=== PATIENT | male | born 1940 | race Caucasian/White ===

== ENCOUNTER 2017-05-24 06:58 | Emergency (ER) | payer OTHER ==
[2017-05-24 07:05] VITALS: BP 168/72; BMI 22.6
[2017-05-24] MEDS ORDERED: TORADOL 30 MG VIAL IVP ONE (07:20)
[2017-05-24] MEDS ORDERED: TYLENOL 325 MG TAB PO ONE ×2 (07:20→07:25)
[2017-05-24] MEDS ORDERED: NS 1000 ML 1,000 ML IV ONE (07:20)
[2017-05-24] MEDS ORDERED: TORADOL 30 MG VIAL ONE (07:24)
[2017-05-24] MEDS ORDERED: NS 1000 ML 1,000 ML ONE (07:24)
[2017-05-24 07:40] LABS: BASOPHILS # (AUTO) 0.1 X10^3/uL (0.0-0.1); BASOPHILS % (AUTO) 0.6 % (0.2-1.0); HEMATOCRIT 29.1 % (42.0-54.0); LYMPHOCYTES % (AUTO) 13.8 % (21.0-51.0); MEAN CORPUSCULAR HEMOGLOBIN 19.2 pg (27.0-34.0); MEAN PLATELET VOLUME 7.3 fL (7.4-11.0); MONOCYTES # (AUTO) 2.3 x10^3/uL (0.3-0.8); MONOCYTES % (AUTO) 15.4 % (0.0-13.0); NEUTROPHILS # (AUTO) 10.4 x10^3/uL (2.2-4.8); NEUTROPHILS % (AUTO) 70.2 % (42.0-75.0); PLATELET COUNT 287 X10^3/uL (150.0-450.0); RED CELL DISTRIBUTION WIDTH 19.9 % (11.6-16.5); WHITE BLOOD COUNT 14.8 X10^3/uL (3.6-10.0)
[2017-05-24 07:47] LABS: ANISOCYTOSIS 1+; HYPOCHROMASIA 2+; MICROCYTOSIS 2+; PLATELET MORPHOLOGY COMMENT NORMAL (NORMAL)
[2017-05-24 07:51] LABS: ALANINE AMINOTRANSFERASE 21 Units/L (12-78); ALBUMIN 3.4 g/dL (3.4-5.0); ALKALINE PHOSPHATASE 71 Units/L (46-116); ASPARTATE AMINO TRANSFERASE 15 Units/L (15-37); BLOOD UREA NITROGEN 17 mg/dL (7-18); CALCIUM 9.2 mg/dL (8.5-10.1); CARBON DIOXIDE 23.4 mmol/L (21-32); CHLORIDE 97 mmol/L (98-107); CREATININE 1.12 mg/dL (0.70-1.30); SODIUM 133 mmol/L (136-145); TOTAL PROTEIN 8.2 g/dL (6.4-8.2); eGFR BLACK RACES > 60 (>60); eGFR NON BLACK RACES > 60 (>60)
--- NOTE | 2017-05-24 07:58 | CT ---
HISTORY: Right flank pain, hematuria Study: CT abdomen pelvis without contrast Comparison: None Technique: Axial noncontrast images with coronal and sagittal reformats. Dose reduction procedures we re used with mA/kv adjusted for body size. Findings: Mild bibasilar interstitial lung changes are present. The liver, spleen, adrenal glands, and pancreas are within normal limits to the limitations of an unenhanced examination. No opaque stones are visib le within the gallbladder. The kidneys are unobstructed and without stones. No ureteral calculi are i dentified. The appendix is noninflamed. Calcific atherosclerotic change is present in a nondilated ab dominal aorta. No enlarged intraperitoneal or retroperitoneal lymphadenopathy is identified. Are no f indings suggestive of diverticulitis or colitis. Examination of the pelvis demonstrated no evidence f or pelvic masses, pelvic fluid, or pelvic lymphadenopathy. No bladder calculi are identified. There i s some mild thickening of the wall of the bladder. This could be due to cystitis, less likely neoplas m. Clinical correlation should determine need for cystoscopy. The prostate gland is prominent but not grossly enlarged. No lytic or blastic skeletal lesions are identified. IMPRESSION: No evidence for obstructing renal or ureteral calculi Mild thickening of the bladder wall which could be on the basis of cystitis, less likely neoplasm. Cl inical correlation should determine need for further evaluation with cystoscopy. Reported By:
--- NOTE | 2017-05-24 08:06 | DR.MBACK ---
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 Patient complains of right flant pain, decreased urinary output, a very little at a time. He denies fever. Chief Complaint:: PT C/O RIGHT FLANK PAIN , AND BLOOD IN HIS UA, AND ONLY ABLE TOO PEE A TEASPOON AT THIS TIME,,BR Self Treatment fo Chief Complaint: pt states he was tx for the flu last week and he was given tamiflu.. - Source History Provided: Patient - Mode of Arrival Mode of Arrival: Ambulatory - Timing Onset of Chief Complaint: 05/23/17 - Location Back Pain Location: Right, Flank - Associated Signs and Symptoms Back Pain Symptoms: None Numbness: None Weakness: None PMH - PMH Past Medical History: Yes Past Medical History: Dyslipidemia, Hypertension Past Surgical History: Yes Past Surgical History Comment: BACK SURGERY IN 1973. - Family History History of Family Medical Conditions: No - Social History Does patient currently use any type of tobacco product: No Have you used tobacco products in the last 12 months: No Type of Tobacco Use: None Does any household member use tobacco: No Alcohol Use: None Do you use any recreational Drugs:: No Lives With: Alone Lives Where: Home - infectious screening In the last 2 months have you had wt loss of >10#?: NO Have you had fever, night sweats or hemotysis?: No Have you traveled outside the country in the last 6 months?: No Isolation: Standard ROS - Review of Systems Eyes: No Symptoms Reported ENTM: No Symptoms Reported Respiratoy: No Symptoms Reported Cardiovascular: No Symptoms Reported Gastrointestinal/Abdominal: No Symptoms Reported Genitourinary: See HPI Musculoskeletal: No Symptoms Reported Integumentary: No Symptoms Reported Hematologic/Lymphatic: No Symptoms Reported Endocrine: No Symptoms Reported Psychiatric: See HPI All Other Systems: Reviewed and Negative PE - Vital Signs Vitals: Temperature 101.2 F Pulse Rate 101 Respiratory Rate 18 Blood Pressure 168/72 O2 Sat by Pulse Oximetry 99 - General Limitations: Other (Hearing deficit) General Appearance: Alert, In No Apparent Distress - Head Head Exam: Normal Inspection, Atraumatic - Eyes Eye exam: Normal Appearance, PERRL, EOMI - ENT ENT Exam: Normal Exam - Chest Chest Inspection: Normal Inspection, Symmetric Chest Wall Rise - Respiratory Respiratory Exam: Normal Lung Sounds Bilat Respiratory Exam: Bilateral Clear to Auscultation - Cardiovascular Cardiovascular Exam: Regular Rate, Normal Rhythm - Abdominal Exam Abdominal Exam: Normal Inspection, Normal Bowel Sounds Abdominal Tenderness: negative: RUQ, RLQ, LUQ, LLQ, Epigastrium, Suprapubic, Diffuse, Mild, Moderate, Severe, Other - Rectal Rectal Exam: Deferred - Genitourinary Exam: Male: Deferred Scrotal Exam: Normal: Bilateral - Extremities Extremities Exam: Normal Inspection - Back Back Exam: (R) CVA Tenderness - Neurological Neurological Exam: Alert, Oriented X3, CN II-XII Intact - Psychiatric Psychiatric Exam: Normal Affect - Skin Skin Exam: Warm, Dry, Intact ROR - Labs Reviewed Result Diagrams: 05/24/17 07:30 05/24/17 07:30 Laboratory: WBC 14.8 X10^3/uL (3.6-10.0) H 05/24/17 07:30 RBC 4.70 X10^6/uL (4.7-6.0) 05/24/17 07:30 Hgb 9.0 g/dL (13.5-18.0) L 05/24/17 07:30 Hct 29.1 % (42.0-54.0) L 05/24/17 07:30 MCV 62.0 fL (80.0-100.0) L 05/24/17 07:30 MCH 19.2 pg (27.0-34.0) L 05/24/17 07:30 MCHC 31.0 g/dL (33.0-35.0) L 05/24/17 07:30 RDW 19.9 % (11.6-16.5) H 05/24/17 07:30 Plt Count 287 X10^3/uL (150.0-450.0) 05/24/17 07:30 Plt Count Comment Adequate (ADEQUATE) 05/24/17 07:30 MPV 7.3 fL (7.4-11.0) L 05/24/17 07:30 Neut % 70.2 % (42.0-75.0) 05/24/17 07:30 Lymph % 13.8 % (21.0-51.0) L 05/24/17 07:30 [place] % 15.4 % (0.0-13.0) H 05/24/17 07:30 Eos % 0.0 % (0.9-2.9) L 05/24/17 07:30 Baso % 0.6 % (0.2-1.0) 05/24/17 07:30 Neut # 10.4 x10^3/uL (2.2-4.8) H 05/24/17 07:30 Lymph # 2.0 X10^3/uL (1.3-2.9) 05/24/17 07:30 [place] # 2.3 x10^3/uL (0.3-0.8) H 05/24/17 07:30 Eos # 0.0 x10^3/uL (0.0-0.2) 05/24/17 07:30 Baso # 0.1 X10^3/uL (0.0-0.1) 05/24/17 07:30 Absolute Nucleated RBC 0.0 /100WBC 05/24/17 07:30 Plt Morphology Comment Normal (NORMAL) 05/24/17 07:30 RBC Morphology Abnormal (NORMAL) 05/24/17 07:30 Hypochromasia 2+ A 05/24/17 07:30 Anisocytosis 1+ A 05/24/17 07:30 Microcytosis 2+ A 05/24/17 07:30 Sodium 133 mmol/L (136-145) L 05/24/17 07:30 Corrected Sodium TNP 05/24/17 07:30 Potassium 3.6 mmol/L (3.5-5.1) 05/24/17 07:30 Chloride 97 mmol/L (98-107) L 05/24/17 07:30 Carbon Dioxide 23.4 mmol/L (21-32) 05/24/17 07:30 BUN 17 mg/dL (7-18) 05/24/17 07:30 Creatinine 1.12 mg/dL (0.70-1.30) 05/24/17 07:30 Est GFR (MDRD) Af Amer > 60 (>60) 05/24/17 07:30 Est GFR (MDRD) Non-Af > 60 (>60) 05/24/17 07:30 Glucose 108 mg/dL (65-99) H 05/24/17 07:30 Calcium 9.2 mg/dL (8.5-10.1) 05/24/17 07:30 Corrected Calcium TNP 05/24/17 07:30 Total Bilirubin 0.60 mg/dL (0.2-1.0) 05/24/17 07:30 AST 15 Units/L (15-37) 05/24/17 07:30 ALT 21 Units/L (12-78) 05/24/17 07:30 Alkaline Phosphatase 71 Units/L (46-116) 05/24/17 07:30 Total Protein 8.2 g/dL (6.4-8.2) 05/24/17 07:30 Albumin 3.4 g/dL (3.4-5.0) 05/24/17 07:30 Globulin 4.8 g/dL (2.5-4.5) H 05/24/17 07:30 Albumin/Globulin Ratio 0.7 Ratio (1.1-2.1) L 05/24/17 07:30 - XRAY XRAY Interpreted by: Radiologist (CT Abd/pel w/o: Mild bibasilar interstitial lung changes are present. The liver, spleen,adrenal glands and pancreas are within normal limits to the limitations of an unenhanced examination. On opaqua stones are visible within the gallbladder. The kidneys are unobstructed and without stones. No ureteral calculi are identified. The appendix is noninflamed. Calcific atherosclerotic change is present in the nondilated abdominal aorta. No enlarged intraperitoneal or retroperitoneal lymphadenopathy is identified. Are no findings suggestive of diverticulitis or colitis. Examination of the pelvis demonstrated no evidence for pelvic masses, pelvic fluid or pelvic lymphadenopathy. No bladder calculi are identified. There is some mild thickening of the wall of the bladder. This could be due to cystitis, clemente likely neoplasm. Clinical correlation should determine need for cystoscopy. The prostate gland is prominent but not grossly enlarged. No lytic or blastic skeletal lesions are identified. Impression: No evidence for obstructing renal or ureteral calculi. Mild thickenintg of the bladder wall which coould be on the basis of cystitis, less likely neoplasm. Clinical correlation should determine need for further evaluation with cystoscopy.) - Diagnosis Discharge Problem: Hyponatremia, Cystitis - Discharge Plan Condition: Stable - Follow ups/Referrals Follow ups/Referrals: LETI BULLARD [Primary Care Provider] - 3 days - Instructions
[2017-05-24 08:41] LABS: BILIRUBIN,URINE NEGATIVE (NEGATIVE); BLOOD/HEMOGLOBIN,URINE 5+ (NEGATIVE); GLUCOSE, URINE NEGATIVE (NEGATIVE); KETONES,URINE 1+ (NEGATIVE); LEUKOCYTE ESTERASE ,URINE 3+ (NEGATIVE); NITRITES,URINE POSITIVE (NEGATIVE); PROTEIN,URINE 3+ (NEGATIVE); UROBILINOGEN,URINE NORMAL (NORMAL)
[2017-05-24 08:50] LABS: APPEARANCE,URINE CLOUDY (CLEAR); COLOR,URINE AMBER (YELLOW); RBC,URINE TNTC /HPF (NEGATIVE); SQUAMOUS EPITHELIAL CELL,UR RARE /HPF (NEGATIVE)
[2017-05-24 08:51] LABS: BACTERIA,URINE 1+ /HPF (NEGATIVE)
== END 2017-05-24 08:52 | disposition home or self-care (01) ==
LOC: ER 07:13
DX: E87.1 Hypo-osmolality and hyponatremia (principal); N30.90 Cystitis, unspecified without hematuria; B96.29 Other Escherichia coli [E. coli] as the cause of diseases classified elsewhere
CPT/HCPCS: 36415; 74176; 80053; 81001; 85025; 87086; 87088; 87186; 96365; 96374; 99282; 99283; A4222; J1885

== ENCOUNTER 2017-07-27 09:46 | Day surgery (SDC) | payer OTHER ==
[~2017-07-27 09:46] MED LIST: PROLENSA OPHTH 1 DOSE AFFEYE ONE; TETRACAINE 0.5% OPHTH 1 DOSE AFFEYE ONE; VIGAMOX 0.5% OPHTH 1 DOSE AFFEYE ONE
[2017-07-27] MEDS ORDERED: ALPHAGAN-P OPHTH 1 DOSE AFFEYE ONE (09:48)
[2017-07-27] MEDS ORDERED: CYCLOGYL 1% OPHTH 1 DOSE OP ONE ×4 (09:50→10:05)
[2017-07-27] MEDS ORDERED: AK-DILATE 2.5% OPHTH 1 DOSE OP ONE ×4 (09:50→10:05)
[2017-07-27] MEDS ORDERED: MYDRIACIL OPHTH 1 DOSE AFFEYE ONE ×4 (09:50→10:05)
[2017-07-27] MEDS ORDERED: NS 500 ML IV 500 ML IV ONE (09:51)
[2017-07-27] MEDS ORDERED: DIPRIVAN VIAL ONE (10:52)
[2017-07-27] MEDS ORDERED: TETRACAINE 0.5% OPHTH 1 DOSE AFFEYE ONE (12:48)
[2017-07-27] MEDS ORDERED: BETADINE OPHTH SOLN 5% EACHEYE ONE (12:48)
[2017-07-27] MEDS ORDERED: ADRENALINE CHL INJ IJ ONE ×2 (12:53→13:00)
[2017-07-27] MEDS ORDERED: XYLOCAINE-MPF 1% IJ ONE ×2 (12:53→13:00)
[2017-07-27] MEDS ORDERED: VIGAMOX 0.5% OPHTH 1 DOSE AFFEYE ONE ×2 (12:53→13:09)
[2017-07-27] MEDS ORDERED: BSS OPHTH (PLAIN) 500 ML with VANCOMYCIN HCL 500 MG VIAL 25 MG, ADRENALINE CHL INJ 1 MG IR ONE ×6 (12:54)
[2017-07-27] MEDS ORDERED: DUOVISC IO ONE ×2 (12:54→13:00)
[2017-07-27 13:26] VITALS: BP 164/65
== END 2017-07-27 13:30 | disposition home or self-care (01) ==
LOC: SURG1 09:46
PROVIDERS: ATTEND Ophthalmology
PROC: 08DK3ZZ Extraction of Left Lens, Percutaneous Approach (ICD-10-PCS; principal; 2017-07-27 21:00)
PROC: 08RK3JZ Replacement of Left Lens with Synthetic Substitute, Percutaneous Approach (ICD-10-PCS; principal; 2017-07-27 21:00)
DX: H25.12 Age-related nuclear cataract, left eye (principal); H25.042 Posterior subcapsular polar age-related cataract, left eye
CPT/HCPCS: 99100; A4217; J0170; J3370; J3490

== ENCOUNTER 2017-08-10 07:26 | Day surgery (SDC) | payer OTHER ==
[2017-08-10] MEDS ORDERED: TETRACAINE 0.5% OPHTH 1 DOSE AFFEYE ONE ×2 (07:55→10:00)
[2017-08-10] MEDS ORDERED: VIGAMOX 0.5% OPHTH 1 DOSE AFFEYE ONE ×5 (07:56→10:34)
[2017-08-10] MEDS ORDERED: PROLENSA OPHTH 1 DOSE AFFEYE ONE (08:07)
[2017-08-10] MEDS ORDERED: ALPHAGAN-P OPHTH 1 DOSE AFFEYE ONE (08:08)
[2017-08-10] MEDS ORDERED: CYCLOGYL 1% OPHTH 1 DOSE OP ONE ×3 (08:09→08:11)
[2017-08-10] MEDS ORDERED: MYDRIACIL OPHTH 1 DOSE AFFEYE ONE ×3 (08:09→08:11)
[2017-08-10] MEDS ORDERED: AK-DILATE 2.5% OPHTH 1 DOSE OP ONE ×3 (08:09→08:11)
[2017-08-10] MEDS ORDERED: NS 500 ML IV 500 ML IV ONE (08:24)
[2017-08-10] MEDS ORDERED: BETADINE OPHTH SOLN 5% EACHEYE ONE (10:00)
[2017-08-10] MEDS ORDERED: XYLOCAINE-MPF 1% IJ ONE ×2 (10:06→10:22)
[2017-08-10] MEDS ORDERED: DUOVISC IO ONE ×2 (10:06→10:22)
[2017-08-10] MEDS ORDERED: ADRENALINE CHL INJ IJ ONE ×2 (10:06→10:22)
[2017-08-10] MEDS ORDERED: BSS OPHTH (PLAIN) 500 ML with VANCOMYCIN HCL 500 MG VIAL 25 MG, ADRENALINE CHL INJ 1 MG IR ONE ×6 (10:07)
[2017-08-10 11:00] VITALS: BP 176/78
[2017-08-10] MEDS ORDERED: DIPRIVAN VIAL ONE (15:49)
== END 2017-08-10 10:55 | disposition home or self-care (01) ==
LOC: SURG1 07:26
PROVIDERS: ATTEND Ophthalmology
PROC: 08DJ3ZZ Extraction of Right Lens, Percutaneous Approach (ICD-10-PCS; principal; 2017-08-10 11:15)
PROC: 08RJ3JZ Replacement of Right Lens with Synthetic Substitute, Percutaneous Approach (ICD-10-PCS; principal; 2017-08-10 11:15)
DX: H25.11 Age-related nuclear cataract, right eye (principal); H25.041 Posterior subcapsular polar age-related cataract, right eye
CPT/HCPCS: 99100; A4217; J0170; J3370; J3490

== ENCOUNTER 2019-10-02 09:25 | Observation (INO) ==
[2019-10-02 09:35] VITALS: BMI 23.6
[2019-10-02] MEDS ORDERED: TYLENOL 500 MG TAB EXTRA STRENGTH PO ONE ×2 (09:48→09:51)
--- NOTE | 2019-10-02 09:51 | DR.EXTPAIN ---
HPI Time seen Time Seen by Provider: 10/02/19 09:40 PCP Primary Care Physician: LETI BULLARD HPI Comment HPI Comment: Tripped and hit his right chest on the corner of the bed, denies LOC or dizziness or weakness either before or after the fall. Denies any head or neck trauma or pain. No SHOB, no n/v/d. Complaint/Symptoms Chief Complaint:: PATIENT STATES " I FELL LAST NIGHT AND HIT THE CORNER OF MY BED ON MY RIGHT SIDE AND MY SHOULDER AND DOWN HURTS AND HAS BOTHERED ME ALL NIGHT." COVID-19 Coronavirus risk:travel/contact w/high risk person: No Has patient experienced Coronavirus symptoms: No Nurses notes reviewed Nurses Notes Review: Yes Source History Provided: Patient Mode of arrival Mode of Arrival: Ambulatory Timing Onset of Chief Complaint: 10/01/19 Context History of: None Associated signs and symptoms Associated Signs and Symptoms: None PMH PMH Past Medical History: Yes Past Medical History: Dyslipidemia and Hypertension Past Surgical History: Yes Surgical History: Other Family History History of Family Medical Conditions: No Social History Alcohol Use: None Do you use any recreational Drugs:: No Travel Risk Coronavirus risk:travel/contact w/high risk person: No Has patient experienced Coronavirus symptoms: No Infectious screening Have you traveled outside the country in the last 6 months?: No Isolation: Standard ROS Review of Systems Constitutional: No Symptoms Reported Eyes: No Symptoms Reported ENTM: No Symptoms Reported Respiratoy: No Symptoms Reported Cardiovascular: No Symptoms Reported Gastrointestinal/Abdominal: No Symptoms Reported Genitourinary: No Symptoms Reported Neurological: No Symptoms Reported Musculoskeletal: See HPI Integumentary: No Symptoms Reported Hematologic/Lymphatic: No Symptoms Reported Endocrine: No Symptoms Reported Psychiatric: No Symptoms Reported All Other Systems: Reviewed and Negative PE Vital Signs Vitals: Temperature 97.6 F Pulse Rate [Left] 56 Pulse Rate 61 Respiratory Rate 16 Blood Pressure [Right Arm] 228/97 Blood Pressure 205/91 O2 Sat by Pulse Oximetry 96 General Limitations: No Limitations General Appearance: Alert and In No Apparent Distress Head Head Exam: Normal Inspection and Atraumatic Eyes Eye exam: Normal Appearance ENT ENT Exam: Normal Exam Neck Neck Exam: Normal Inspection, Full ROM and Trachea Midline; negative Tenderness Chest Chest Inspection: Symmetric Chest Wall Rise and Tenderness (right side); negative Normal Inspection (Right flank hematoma) Respiratory Respiratory Exam: Normal Lung Sounds Bilat and Chest Wall Tenderness; negative Accessory Muscle Use, Prolonged Expiratory Phase, Respiratory Distress and Stridor Cardiovascular Cardiovascular Exam: Regular Rate and Normal Rhythm Abdominal Exam Abdominal Exam: Normal Inspection, Normal Bowel Sounds, Soft and Tenderness Abdominal Tenderness: RUQ Extremities Extremities Exam: Normal Inspection Back Back Exam: Normal Inspection Neurological Neurological Exam: Alert, Oriented X3 and CN II-XII Intact Psychiatric Psychiatric Exam: Normal Affect and Normal Mood Skin Skin Exam: Warm, Dry, Intact and Normal Color COURSE Treatment Treatment: Fx ribs 6 7 7 on the right, right small PTX/PHX with PCX. No SHOB or respiratory discomfort in obs. Per rads, no free fluid or any acute abnormalities in the abdomen and pelvis. Discussed the case with Dr. Leon who recommended that the patient be admitted for obs. Pain improved after analgesia. Reevaluation 1st: Improved ROR Labs Reviewed Laboratory Results Reviewed?: Yes Result Diagrams: 10/02/19 10:00 10/02/19 10:00 Laboratory: WBC 6.7 X10^3/uL (3.6-10.0) 10/02/19 10:00 RBC 4.60 X10^6/uL (4.7-6.0) L 10/02/19 10:00 Hgb 13.4 g/dL (13.5-18.0) L 10/02/19 10:00 Hct 40.3 % (42.0-54.0) L 10/02/19 10:00 MCV 87.8 fL (80.0-100.0) 10/02/19 10:00 MCH 29.3 pg (27.0-34.0) 10/02/19 10:00 MCHC 33.3 g/dL (33.0-35.0) 10/02/19 10:00 RDW 13.8 % (11.6-16.5) 10/02/19 10:00 Plt Count 166 X10^3/uL (150.0-450.0) 10/02/19 10:00 MPV 7.0 fL (7.4-11.0) L 10/02/19 10:00 Neut % (Auto) 68.1 % (42.0-75.0) 10/02/19 10:00 Lymph % (Auto) 21.3 % (21.0-51.0) 10/02/19 10:00 [place] % (Auto) 7.4 % (0.0-13.0) 10/02/19 10:00 Eos % (Auto) 2.1 % (0.9-2.9) 10/02/19 10:00 Baso % (Auto) 1.1 % (0.2-1.0) H 10/02/19 10:00 Neut # (Auto) 4.5 x10^3/uL (2.2-4.8) 10/02/19 10:00 Lymph # (Auto) 1.4 X10^3/uL (1.3-2.9) 10/02/19 10:00 [place] # (Auto) 0.5 x10^3/uL (0.3-0.8) 10/02/19 10:00 Eos # (Auto) 0.1 x10^3/uL (0.0-0.2) 10/02/19 10:00 Baso # (Auto) 0.1 X10^3/uL (0.0-0.1) 10/02/19 10:00 Absolute Nucleated RBC 0.0 /100WBC 10/02/19 10:00 Sodium 136 mmol/L (136-145) 10/02/19 10:00 Corrected Sodium TNP 10/02/19 10:00 Potassium 3.7 mmol/L (3.5-5.1) 10/02/19 10:00 Chloride 99 mmol/L (98-107) 10/02/19 10:00 Carbon Dioxide 29.7 mmol/L (21-32) 10/02/19 10:00 BUN 16 mg/dL (7-18) 10/02/19 10:00 Creatinine 1.07 mg/dL (0.70-1.30) 10/02/19 10:00 Est GFR (MDRD) Af Amer > 60 (>60) 10/02/19 10:00 Est GFR (MDRD) Non-Af > 60 (>60) 10/02/19 10:00 Glucose 100 mg/dL (65-99) H 10/02/19 10:00 Calcium 8.9 mg/dL (8.5-10.1) 10/02/19 10:00 Specimen Type Clean catch urine 10/02/19 11:52 Urine Color Yellow (YELLOW) 10/02/19 11:52 Urine Appearance Clear (CLEAR) 10/02/19 11:52 Urine pH 6.0 (5.0 - 8.0) 10/02/19 11:52 Ur Specific [place] 1.010 (1.000-1.030) 10/02/19 11:52 Urine Protein Negative (NEGATIVE) 10/02/19 11:52 Urine Glucose (UA) Negative (NEGATIVE) 10/02/19 11:52 Urine Ketones Negative (NEGATIVE) 10/02/19 11:52 Urine Occult Blood Negative (NEGATIVE) 10/02/19 11:52 Urine Nitrite Negative (NEGATIVE) 10/02/19 11:52 Urine Bilirubin Negative (NEGATIVE) 10/02/19 11:52 Urine Urobilinogen Normal (NORMAL) 10/02/19 11:52 Ur Leukocyte Esterase Negative (NEGATIVE) 10/02/19 11:52 EKG [place]: Normal Rhythm: NSR Block: None Hypertrophy: None ST: Normal Opioid Opioid Risk Tool Age (Jesús box if 16-45): No Total: 0 Total Score Risk Category: Low Risk Copyright: [facility] predicting aberrant behaviors Diagnosis Discharge Problem: Hemothorax on right, Pneumothorax on right Multiple rib fractures Qualifiers: Encounter type: initial encounter Fracture type: closed Laterality: right Qualified Code(s): S22.41XA - Multiple fractures of ribs, right side, initial encounter for closed fracture Contusion of lung Qualifiers: Encounter type: initial encounter Laterality: right Qualified Code(s): S27.321A - Contusion of lung, unilateral, initial encounter
[2019-10-02 10:11] LABS: BASOPHILS # (AUTO) 0.1 X10^3/uL (0.0-0.1); BASOPHILS % (AUTO) 1.1 % (0.2-1.0); EOSINOPHILS # (AUTO) 0.1 x10^3/uL (0.0-0.2); EOSINOPHILS % (AUTO) 2.1 % (0.9-2.9); HEMATOCRIT 40.3 % (42.0-54.0); HEMOGLOBIN 13.4 g/dL (13.5-18.0); LYMPHOCYTES # (AUTO) 1.4 X10^3/uL (1.3-2.9); LYMPHOCYTES % (AUTO) 21.3 % (21.0-51.0); MEAN CORPUSCULAR HEMOGLOBIN 29.3 pg (27.0-34.0); MEAN CORPUSCULAR HGB CONC 33.3 g/dL (33.0-35.0); MEAN CORPUSCULAR VOLUME 87.8 fL (80.0-100.0); MONOCYTES # (AUTO) 0.5 x10^3/uL (0.3-0.8); MONOCYTES % (AUTO) 7.4 % (0.0-13.0); NEUTROPHILS # (AUTO) 4.5 x10^3/uL (2.2-4.8); NEUTROPHILS % (AUTO) 68.1 % (42.0-75.0); PLATELET COUNT 166 X10^3/uL (150.0-450.0); RED CELL DISTRIBUTION WIDTH 13.8 % (11.6-16.5); WHITE BLOOD COUNT 6.7 X10^3/uL (3.6-10.0)
[2019-10-02 10:14] LABS: BLOOD UREA NITROGEN 16 mg/dL (7-18); CALCIUM 8.9 mg/dL (8.5-10.1); CARBON DIOXIDE 29.7 mmol/L (21-32); CHLORIDE 99 mmol/L (98-107); CREATININE 1.07 mg/dL (0.70-1.30); SODIUM 136 mmol/L (136-145); eGFR NON BLACK RACES > 60 (>60)
[2019-10-02] MEDS ORDERED: NS 100 ML IV 100 ML IV ONE (10:42)
[2019-10-02 11:59] LABS: BILIRUBIN,URINE NEGATIVE (NEGATIVE); BLOOD/HEMOGLOBIN,URINE NEGATIVE (NEGATIVE); GLUCOSE, URINE NEGATIVE (NEGATIVE); KETONES,URINE NEGATIVE (NEGATIVE); LEUKOCYTE ESTERASE ,URINE NEGATIVE (NEGATIVE); NITRITES,URINE NEGATIVE (NEGATIVE); PROTEIN,URINE NEGATIVE (NEGATIVE); UROBILINOGEN,URINE NORMAL (NORMAL)
[2019-10-02 12:06] LABS: APPEARANCE,URINE CLEAR (CLEAR); COLOR,URINE YELLOW (YELLOW)
--- NOTE | 2019-10-02 12:10 | CT ---
HISTORYRIGHT RIB PAIN DUE TO FALL ON 10/01/19TUDYABDOMEN/PELVIS WITH CONCOMPARISONNoneTECHNIQUEAxial images through the abdomen were performed after the administration of contrast. CT scan was performed following ALARA (As low as Reasonably Achievable).Coronal and Sagittal reformatted images were performed..FINDINGSThe lung bases demonstrate multiple right lateral rib fractures 6 7 and 8th, there is an small right pleural effusion with Hounsfield units of 18, there is also patchy atelectasis within right lower lobe contusion. There is mild subcutaneous emphysema in the right lateral lower chest and there is a small anterior pneumothorax. There is ground-glass radiopacities in the left lung that could correspond with areas of contusion. The liver demonstrate no focal hematomas. The spleen is nonenlarged no pericholecystic fluid, the pancreas is unremarkable, there is no gallstones, no intra or extrahepatic biliary dilatation common no adrenal masses, there are bilateral normal enhancing kidneys without hydronephrosis, no abnormal dilated small bowel loops, there is evidence of free air could no significant free fluid, no focal dilatation of the abdominal aortaPelvis: There is no free fluid. The prostate is not enlarged. The urinary bladder demonstrate no abnormalitie. there is no dominant pelvic hematoma. No pelvic bone fractures. No acute compression fractures of the lumbar vertebral bodiesIMPRESSIONMultiple right lateral rib fracture 6, 7 and 8 th with small anterior pneumothorax please correlation with a CT chest recommended.Right lower lobe contusion with small pleural effusion. No intra-abdominal solid organ injury. No pelvic fractures. No free air or free fluid in the abdomen and pelvis.Findings were notified to patient nurse Brown Knapp at the time of dictationElectronically signed by: Bette Cm (Oct 02, 2019 12:09:08)
--- NOTE | 2019-10-02 12:36 | CT ---
HISTORYFall, right rib painSTUDYCT chest without contrastTechnique: Axial noncontrast images with coronal and sagittal reformats. Dose reduction procedures were used with mA/kv adjusted for body size. THIS EXAMINATION IS LIMITED DUE TO THE LACK OF INTRAVENOUS CONTRAST. The examination was performed in this manner at the sole discretion of the ordering caregiver.COMPARISONNoneFINDINGSExamination of the mediastinum demonstrated no evidence for mediastin al hematoma, mediastinal mass, enlarged mediastinal or enlarged hilar adenopathy to the limitations o f an unenhanced examination. Calcific atherosclerotic change is present in a normal caliber aorta. Ev aluation for aortic injury is not possible due to the lack of intravenous contrast. The heart is enla rged. There is a small right pleural effusion present possibly a hemo thorax. No acute traumatic thor acic spine abnormality is identified. There are fractures of the right lateral 6th 7th and 8th ribs w ith some associated subcutaneous emphysema. There is a 10 percent right pneumothorax best visualized in the right lung apex and layering anteriorly. There are some changes of centrilobular emphysema and paraseptal emphysema in the upper lobes. Interstitial lung changes are present in the lower lobes as is peribronchial thickening consistent with bronchitis which could be acute, chronic, or both. There is a right lower lobe lung contusion present. Those portions of the upper abdominal organs visualize d were within normal limits. Contrast is identified in the renal collecting systems from recent abdom inal CT.IMPRESSIONFractures of the right lateral 6th 7th and 8th ribs10 percent right pneumothorax wi thout evidence for tensionRight basilar lung contusionSmall right pleural effusion possibly a hemo th oraxMore chronic lung changes as described aboveElectronically signed by: DONAL ROBERTSON (Oct 02, 2019 12:34:46)
[2019-10-02] MEDS ORDERED: MORPHINE SULFATE INJ 2 MG INJ ONE (13:18)
[2019-10-02] MEDS ORDERED: MORPHINE SULFATE INJ 2 MG INJ IVP ONE (13:25)
[2019-10-02] MEDS ORDERED: VASOTEC INJ 2.5 MG VIAL ONE (14:10)
[2019-10-02] MEDS ORDERED: VASOTEC INJ 2.5 MG VIAL IVP PRN (15:50)
[2019-10-02] MEDS ORDERED: VASOTEC INJ 2.5 MG VIAL IVP ONE (15:50)
[2019-10-02] MEDS ORDERED: MORPHINE SULFATE INJ 2 MG INJ IVP PRN (15:50)
[2019-10-02] MEDS: NORCO 5/325 MG TAB PO PRN ×2 (16:17→21:43)
[2019-10-02 16:35] LABS: BASOPHILS # (AUTO) 0.1 X10^3/uL (0.0-0.1); EOSINOPHILS # (AUTO) 0.1 x10^3/uL (0.0-0.2); EOSINOPHILS % (AUTO) 2.2 % (0.9-2.9); HEMATOCRIT 40.8 % (42.0-54.0); HEMOGLOBIN 13.8 g/dL (13.5-18.0); LYMPHOCYTES # (AUTO) 1.5 X10^3/uL (1.3-2.9); MEAN CORPUSCULAR HGB CONC 33.7 g/dL (33.0-35.0); MEAN PLATELET VOLUME 7.8 fL (7.4-11.0); MONOCYTES # (AUTO) 0.5 x10^3/uL (0.3-0.8); MONOCYTES % (AUTO) 8.4 % (0.0-13.0); NEUTROPHILS % (AUTO) 64.4 % (42.0-75.0); PLATELET COUNT 144 X10^3/uL (150.0-450.0); RED BLOOD COUNT 4.59 X10^6/uL (4.7-6.0); RED CELL DISTRIBUTION WIDTH 13.6 % (11.6-16.5); WHITE BLOOD COUNT 6.2 X10^3/uL (3.6-10.0)
[2019-10-02] MEDS ORDERED: VASOTEC TAB 5 MG PO ONE (18:00)
[2019-10-02] MEDS ORDERED: LOVASTATIN PO SCH (21:00)
[2019-10-03 06:17] LABS: BASOPHILS % (AUTO) 0.8 % (0.2-1.0); EOSINOPHILS # (AUTO) 0.2 x10^3/uL (0.0-0.2); EOSINOPHILS % (AUTO) 3.9 % (0.9-2.9); HEMATOCRIT 40.8 % (42.0-54.0); HEMOGLOBIN 13.6 g/dL (13.5-18.0); LYMPHOCYTES # (AUTO) 0.9 X10^3/uL (1.3-2.9); LYMPHOCYTES % (AUTO) 17.5 % (21.0-51.0); MEAN CORPUSCULAR HEMOGLOBIN 29.4 pg (27.0-34.0); MEAN CORPUSCULAR HGB CONC 33.4 g/dL (33.0-35.0); MEAN CORPUSCULAR VOLUME 87.8 fL (80.0-100.0); MEAN PLATELET VOLUME 7.2 fL (7.4-11.0); MONOCYTES # (AUTO) 0.6 x10^3/uL (0.3-0.8); MONOCYTES % (AUTO) 11.2 % (0.0-13.0); NEUTROPHILS # (AUTO) 3.4 x10^3/uL (2.2-4.8); NEUTROPHILS % (AUTO) 66.6 % (42.0-75.0); PLATELET COUNT 149 X10^3/uL (150.0-450.0); RED BLOOD COUNT 4.65 X10^6/uL (4.7-6.0); RED CELL DISTRIBUTION WIDTH 13.5 % (11.6-16.5); WHITE BLOOD COUNT 5.1 X10^3/uL (3.6-10.0)
[2019-10-03 06:19] LABS: BLOOD UREA NITROGEN 14 mg/dL (7-18); CARBON DIOXIDE 28.4 mmol/L (21-32); CHLORIDE 100 mmol/L (98-107); CREATININE 1.03 mg/dL (0.70-1.30); SODIUM 137 mmol/L (136-145); eGFR NON BLACK RACES > 60 (>60)
--- NOTE | 2019-10-03 07:47 | RAD ---
HISTORYPTX/HTXSTUDYCHEST, [address] October 02, 2019 which showed a tiny right apical pneumothorax and rib fractures laterally on the rightFINDINGSThe trachea is midline. The cardiac silhouette is unremarkable . The lungs are clear without focal infiltrate or effusion. A small nodular density is seen in the right apex overlying the anterior right 1st rib as was seen on the CT scan performed yesterday. Acute displaced 6 7th and 8th rib fractures are seen with 2 rib fractures seen at the 7th and 8th rib i.e. flail segments involving the stool lateral ribs no definite pneumothorax is seen in the right apex as was seen on yesterday's CT. The bony thorax is unremarkable.IMPRESSIONAcute 6th through 8th rib fractures with flail segments in the 7th and 8th rib fractures. No definite pneumothorax seen on plain film technique but suspect that there is a small residual apical pneumothorax because of the pleural line seen on the right apex.Electronically signed by: RENETTA MANSFIELD (Oct 03, 2019 07:45:51)
[2019-10-03] MEDS ORDERED: VASOTEC TAB 20 MG PO SCH (09:00)
[2019-10-03] MEDS ORDERED: HYDROCHLOROTHIAZIDE 25 MG TAB PO SCH (09:00)
[2019-10-03] MEDS ORDERED: NORVASC TAB 5 MG PO SCH (10:00)
[2019-10-03] MEDS ORDERED: LOVENOX INJ 40 MG SYR SC SCH (10:00)
--- NOTE | 2019-10-03 10:50 | DR.CONSULT ---
Consult - Consultation for Day of: Date: 10/03/19 - Chief Complaint Chief Complaint: MULTIPLE RIB FX, PNEUMOHEMOTHROAX, PULMONARY CONTUSION - History of Present Illness History of Present Illness: IS A 78 YEAR OLD PATIENT OF LETI BULLARD WHO WAS ADMITTED TO THE HOSPITAL BY DUE TO MULTIPLE RIB FX AND A SMALL RIGHT PNEUMOHEMOTHORAX AND PULMONARY CONTUSION AFTER FALLING AT HOME. DID NOT FEEL THAT A CHEST TUBE OR SURGICAL INTERVENTION WAS NEEDED AT THE TIME. HIS PMH INCLUDES HTN AND HYPERLIPIDEMIA. HE WAS NOTED TO BE HYPERTENSIVE ON ARRIVAL TO THE ER WITH A BLOOD PRESSURE OF 242/109. HE WAS GIVEN VASOTEC IN THE ER. HIS BLOOD PRESSURE DID DECREASE TO 192/83. TODAY, HE IS ALERT AND ORIENTED, LYING IN BED ON MORNING ROUNDS. HE CONTINUES WITH PAIN TO THE RIB AREA. HE REPORTS MILD SHORTNESS OF BREATH. HE IS REQUESTING TO BE DISCHARGED HOME. ON EXAMINATION, HE IS NOTED TO BE BRADYCARDIC WITH HR IN THE 50s. BILATERAL LUNGS ARE NOTED WITH DIMINISHED LUNG SOUNDS THROUGOUT. ABDOMEN IS ROUND, SOFT, AND NON-TENDER WITH NORMAL BOWEL SOUNDS NOTED IN ALL QUADRANTS. THERE IS SCATTERED BRUISING NOTED. HIS VITALS THIS MORNING ARE 97.7-61-18-94%-188/60. LABS WERE OBTAINED. ABNORMAL LAB VALUES INCLUDE THE FOLLOWING: RBC 4.60, HGB 13.4, HCT 40.3, GLUCOSE 100. CHEST XRAY REVEALED: Acute 6th through 8th rib fractures with flail segments in the 7th and 8th rib fractures. No definite pneumothorax seen on plain film technique but suspect that there is a small residual apical pneumothorax because of the pleural line seen on the right apex. HE IS CURRENTLY RECEIVING: NORCO 5/325MG PO Q4H PRN PAIN, HCTZ 25MG PO DAILY, LOVENOX 40MG SC DAILY, VASOTEC 1.25MG IV Q6H PRN, VASOTEC 20MG PO DAILY. WE WILL HOLD HIS METOPROLOL DUE TO DECREASED HEART RATE. WE WILL ADD NORVASC 5MG PO DAILY. WILL CONTINUE TO MONITOR PATIENT TODAY. WE WILL DISCUSS HIS PLAN OF CARE WITH . - Past Medical History Past Medical History: Hypertension, Dyslipidemia - Past Surgical History Surgical History: Other - Family History Family Medical History: Cancer - Social History Does patient currently use any type of tobacco product: No Have you used tobacco products in the last 12 months: No Type of Tobacco Use: None How many years tobacco product used: 30 Alcohol Use: DAILY Drug Use: None - Medications Home Medications: No Known Drug Allergies Allergy (Verified 05/24/17 07:06) CONTINUE taking the following medications metoprolol tartrate 50 mg PO BID 10/02/19 [History] - Review of Systems Constitutional: Weakness Eyes: No Symptoms Reported ENT: No Symptoms Reported Respiratory: No Symptoms Reported Cardiovascular: No Symptoms Reported Gastrointestinal: No Symptoms Reported Genitourinary: No Symptoms Reported Musculoskeletal: See HPI, Other (RIB PAIN, GENERALIZED [place] ) Skin: See HPI, Other (SCATTERED BRUISING ) Neurological: Weakness - Physical Exam Vital Signs: Temperature 97.7 F Pulse Rate [Right Brachial] 61 Pulse Rate [Left] 56 Pulse Rate 61 Respiratory Rate 18 Blood Pressure [Right Arm] 188/60 Blood Pressure 205/91 O2 Sat by Pulse Oximetry 94 Oriented: Normal Eyes: Normal Ear: Normal Nose: Normal Throat: Normal Respiratory: Diminished Throughout Cardiovascular: Bradycardia. negative: S3, S4, Murmur : Normal Auscultation: Bowel Sounds: Normal Palpation: Normal Tenderness: Normal Skin: Bruising Musculoskeletal: Back:Lumbar, Tender (RIB PAIN, GENERALIZED [place] ) Psychiatric: Normal Mood Description: Calm Affect: Normal Speech Pattern: Clear - Allergies Allergies/Adverse Reactions: Allergies Allergy/AdvReac Type Severity Reaction Status Date / Time No Known Drug Allergies Allergy Verified 05/24/17 07:06
[2019-10-03 14:46] VITALS: BP 180/90
== END 2019-10-03 14:00 | disposition home or self-care (01) ==
LOC: ER 09:29 → MED/SURG 09:29
PROVIDERS: ADMIT Surgery; ATTEND Surgery
DX: S27.2XXA Traumatic hemopneumothorax, initial encounter; Y92.89 Other specified places as the place of occurrence of the external cause; S22.41XA Multiple fractures of ribs, right side, initial encounter for closed fracture; I10 Essential (primary) hypertension; S27.322A Contusion of lung, bilateral, initial encounter; E78.5 Hyperlipidemia, unspecified; R00.1 Bradycardia, unspecified; W18.49XA Other slipping, tripping and stumbling without falling, initial encounter
CPT/HCPCS: 36415; 71010; 71045; 71250; 74177; 80048; 81003; 85025; 94760; 96365; 96372; 96374; 96375; 97161; 99284; A4222; G0378; J1650; J2270; J3490

== ENCOUNTER 2019-10-13 11:09 | Inpatient (IN) ==
[2019-10-13 11:15] VITALS: BMI 29.0
--- NOTE | 2019-10-13 11:41 | DR.EXTPAIN ---
HPI Time seen Time Seen by Provider: 10/13/19 11:30 PCP Primary Care Physician: BETITO WREN HPI Comment HPI Comment: PATIENT IS 78YR OLD MALE IN ER WITH GENERALIZED WEAKNESS, RIGHT RIB PAIN, NAUSEA AND VOMITING TIMES ONE WEEK. FELL RECENTLY AND HOSPITALIZED. HAD RIGHT RIB PAIN AND HAVE BEING PROGRESSIVELY WEAK AND SICK SINCE. TODAY, PATIENTS SYMPTOMS ARE WORSE. Complaint/Symptoms Chief Complaint Doctor Comments: FEVER, RIGHT RIB PAIN AND GENERALIZED WEAKNESS AND NAUSEA AND VOMITING TIMES ONE WEEK. Chief Complaint:: PT HAD RECENT ADMISSION FOR FALL WITH RIGHT RIB FX AND SMALL PNEUMOTHORAX. PT STATES THAT SINCE HE WAS DISCHARGE HE HAS HAD WEAKNESS, FEVER AND PAIN INTO RIGHT RIBS. COVID-19 Coronavirus risk:travel/contact w/high risk person: Yes Has patient experienced Coronavirus symptoms: Yes Coronavirus symptoms experienced: Fever and Shortness of Breath Nurses notes reviewed Nurses Notes Review: Yes Source History Provided: Patient Mode of arrival Mode of Arrival: EMS Timing Onset of Chief Complaint: 10/13/19 Context History of: Arthritis Associated signs and symptoms Associated Signs and Symptoms: Weakness, Pain, Fever, Cough, Nausea and Vomiting PMH PMH Past Medical History: Yes Past Medical History: Dyslipidemia and Hypertension Past Medical History Comment: CHRONIC BACK PAIN Past Surgical History: Yes Surgical History: Other Past Surgical History Comment: LOWER BACK SURGERY Family History History of Family Medical Conditions: No Family Medical History: Cancer Social History Does patient currently use any type of tobacco product: No Have you used tobacco products in the last 12 months: No Type of Tobacco Use: None Does any household member use tobacco: No Alcohol Use: None Do you use any recreational Drugs:: No Lives With: Family Lives Where: Home Travel Risk Coronavirus risk:travel/contact w/high risk person: Yes Has patient experienced Coronavirus symptoms: Yes Coronavirus symptoms experienced: Fever and Shortness of Breath Infectious screening In the last 2 months have you had wt loss of >10#?: NO Have you had fever, night sweats or hemotysis?: No Have you traveled outside the country in the last 6 months?: No Isolation: Droplet ROS Review of Systems Constitutional: See HPI, Fever, Weakness and Fatigue Eyes: No Symptoms Reported and See HPI ENTM: No Symptoms Reported and See HPI; negative Ear Pain, Pulling on Ears, Nose Congestion and Throat Pain Respiratoy: See HPI; negative Moist Cough Cardiovascular: No Symptoms Reported, See HPI and Chest Pain; negative Edema and Palpitations Gastrointestinal/Abdominal: No Symptoms Reported, See HPI, Nausea and Vomiting Genitourinary: No Symptoms Reported and See HPI; negative Dysuria and Hematuria Neurological: See HPI and Weakness; negative Headache and Dizziness Musculoskeletal: See HPI and Muscle Pain; negative Back Pain Integumentary: See HPI and Dryness; negative Change in Color and Juandice Hematologic/Lymphatic: No Symptoms Reported and See HPI; negative Easy Bruising and Swollen Glands Endocrine: No Symptoms Reported and See HPI; negative Increased Thirst and Increased Urine Psychiatric: No Symptoms Reported and See HPI All Other Systems: Reviewed and Negative PE Vital Signs Vitals: Temperature 99.5 F Pulse Rate 83 Respiratory Rate 20 Blood Pressure [Right Arm] 180/90 Blood Pressure 145/72 O2 Sat by Pulse Oximetry 93 General Limitations: No Limitations General Appearance: Alert and In No Apparent Distress Head Head Exam: Normal Inspection and Atraumatic Eyes Eye exam: Normal Appearance and PERRL; negative Scleral Icterus and Conjunctival Injection ENT ENT Exam: Normal Exam Neck Neck Exam: Normal Inspection and Trachea Midline; negative Tenderness and Lymphadenopathy Chest Chest Inspection: Normal Inspection and Symmetric Chest Wall Rise; negative Tenderness Respiratory Respiratory Exam: Normal Lung Sounds Bilat and Chest Wall Tenderness; negative Accessory Muscle Use and Respiratory Distress Respiratory Exam: Bilateral: Rhonchi and Lower: Rhonchi Cardiovascular Cardiovascular Exam: Normal Rhythm, Tachycardia, Systolic Murmur and Diastolic Murmur Abdominal Exam Abdominal Exam: Normal Inspection, Normal Bowel Sounds, Soft and Tenderness Extremities Extremities Exam: Normal Inspection and Normal Capillary Refill Back Back Exam: Normal Inspection; negative (R) CVA Tenderness and (L) CVA Tenderness Neurological Neurological Exam: Alert, Oriented X3 and CN II-XII Intact Psychiatric Psychiatric Exam: Normal Affect and Normal Mood Skin Skin Exam: Dry MDM Differential Diagnosis Differential Diagnosis: Other (DEHYDRATION, GENERALIZED WEAKNESS, UTI, NV, PNEUMONIA, CHEST WALL PAIN.) COURSE Treatment Treatment: SEE ORDERS. NS 1L IV BOLUS, ZOFRAN 4MG IV, MORPHIN 2MG IV AND ROCEPHIN 1GM IVPB IN ER. Consultation Consultation Comments: DISCUSSED PATIENT WITH DR. CASTANO AND HE WILL ADMIT PATIENT. Education/Counseling Education/Counseling: Patient Educated On: Diagnosis and Needs for Follow Up ROR Labs Reviewed Laboratory Results Reviewed?: Yes Result Diagrams: 10/17/19 04:45 10/17/19 04:45 Laboratory: 10/13/19 11:54 Blood Blood Culture - Final Escherichia Coli 10/13/19 11:43 Blood Blood Culture - Final Escherichia Coli 10/13/19 12:30 Urine,Clean Catch Urine Culture - Final Escherichia Coli WBC 11.5 X10^3/uL (3.6-10.0) H 10/13/19 11:43 RBC 3.86 X10^6/uL (4.7-6.0) L 10/13/19 11:43 Hgb 11.1 g/dL (13.5-18.0) L 10/13/19 11:43 Hct 33.8 % (42.0-54.0) L 10/13/19 11:43 MCV 87.5 fL (80.0-100.0) 10/13/19 11:43 MCH 28.9 pg (27.0-34.0) 10/13/19 11:43 MCHC 33.0 g/dL (33.0-35.0) 10/13/19 11:43 RDW 14.0 % (11.6-16.5) 10/13/19 11:43 Plt Count 196 X10^3/uL (150.0-450.0) 10/13/19 11:43 MPV 7.6 fL (7.4-11.0) 10/13/19 11:43 Neut % (Auto) 89.2 % (42.0-75.0) H 10/13/19 11:43 Lymph % (Auto) 3.0 % (21.0-51.0) L 10/13/19 11:43 [place] % (Auto) 7.6 % (0.0-13.0) 10/13/19 11:43 Eos % (Auto) 0.1 % (0.9-2.9) L 10/13/19 11:43 Baso % (Auto) 0.1 % (0.2-1.0) L 10/13/19 11:43 Neut # (Auto) 10.3 x10^3/uL (2.2-4.8) H 10/13/19 11:43 Lymph # (Auto) 0.3 X10^3/uL (1.3-2.9) L 10/13/19 11:43 [place] # (Auto) 0.9 x10^3/uL (0.3-0.8) H 10/13/19 11:43 Eos # (Auto) 0.0 x10^3/uL (0.0-0.2) 10/13/19 11:43 Baso # (Auto) 0.0 X10^3/uL (0.0-0.1) 10/13/19 11:43 Absolute Nucleated RBC 0.0 /100WBC 10/13/19 11:43 Sodium 125 mmol/L (136-145) L* 10/13/19 11:43 Corrected Sodium TNP 10/13/19 11:43 Potassium 3.6 mmol/L (3.5-5.1) 10/13/19 11:43 Chloride 89 mmol/L (98-107) L 10/13/19 11:43 Carbon Dioxide 20.3 mmol/L (21-32) L 10/13/19 11:43 BUN 72 mg/dL (7-18) H 10/13/19 11:43 Creatinine 4.17 mg/dL (0.70-1.30) H 10/13/19 11:43 Est GFR (MDRD) Af Amer 18 (>60) L 10/13/19 11:43 Est GFR (MDRD) Non-Af 15 (>60) L 10/13/19 11:43 Glucose 105 mg/dL (65-99) H 10/13/19 11:43 Lactic Acid 1.6 mmol/L (0.4-2.0) 10/13/19 11:43 Calcium 9.1 mg/dL (8.5-10.1) 10/13/19 11:43 Corrected Calcium 9.8 mg/dL (8.5-10.1) 10/13/19 11:43 Ferritin 608 ng/mL (26-388) H 10/13/19 11:43 Total Bilirubin 0.80 mg/dL (0.2-1.0) 10/13/19 11:43 AST 30 Units/L (15-37) 10/13/19 11:43 ALT 28 Units/L (12-78) 10/13/19 11:43 Alkaline Phosphatase 85 Units/L (46-116) 10/13/19 11:43 Lactate Dehydrogenase 242 Units/L (85-227) H 10/13/19 11:43 C-Reactive Protein 268.00 mg/L (0-3.0) H 10/13/19 11:43 Total Protein 8.1 g/dL (6.4-8.2) 10/13/19 11:43 Albumin 3.1 g/dL (3.4-5.0) L 10/13/19 11:43 Globulin 5.0 g/dL (2.5-4.5) H 10/13/19 11:43 Albumin/Globulin Ratio 0.6 Ratio (1.1-2.1) L 10/13/19 11:43 Specimen Type Clean catch urine 10/13/19 12:30 Urine Color Dark yellow (YELLOW) 10/13/19 12:30 Urine Appearance Hazy (CLEAR) 10/13/19 12:30 Urine pH 5.0 (5.0 - 8.0) 10/13/19 12:30 Ur Specific [place] 1.015 (1.000-1.030) 10/13/19 12:30 Urine Protein 3+ (NEGATIVE) 10/13/19 12:30 Urine Glucose (UA) Negative (NEGATIVE) 10/13/19 12:30 Urine Ketones 1+ (NEGATIVE) 10/13/19 12:30 Urine Occult Blood 4+ (NEGATIVE) 10/13/19 12:30 Urine Nitrite Positive (NEGATIVE) 10/13/19 12:30 Urine Bilirubin Negative (NEGATIVE) 10/13/19 12:30 Urine Urobilinogen Normal (NORMAL) 10/13/19 12:30 Ur Leukocyte Esterase 3+ (NEGATIVE) 10/13/19 12:30 Urine RBC 5-10 /HPF (0-3) A 10/13/19 12:30 Urine WBC Tntc /HPF (0-5) A 10/13/19 12:30 Ur Squamous Epith Cells Rare /HPF (NEGATIVE) 10/13/19 12:30 Urine Bacteria 1+ /HPF (NEGATIVE) 10/13/19 12:30 Ur Culture Indicated? Yes/culture set up 10/13/19 12:30 SARS-CoV-2 (PCR) Negative (NEGATIVE) 10/13/19 13:51 Other Results Comments: FINDINGS The heart is within normal limits in size. The keith are normal. There is a right pleural effusion present. An underlying small right basilar infiltrate cannot be excluded. The remainder of the lung jones are clear. Bony thorax is unremarkable. IMPRESSION Right pleural effusion partially obscuring the lung markings in the right lung base XRAY XRAY Interpreted by: Radiologist (REPORT NOTED AND DISCUSSED WITH PATIENT.) and Self EKG Rate: 91 [place]: Normal Rhythm: NSR and PACs Block: None Hypertrophy: None ST: Normal Opioid Opioid Risk Tool Age (Jesús box if 16-45): No History of Preadolescent Sexual Abuse: No Total: 0 Total Score Risk Category: Low Risk Copyright: Darryn HE predicting aberrant behaviors Diagnosis Discharge Problem: Acute hyponatremia, Acute dehydration, Acute UTI Acute renal failure Qualifiers: Acute renal failure type: unspecified Qualified Code(s): N17.9 - Acute kidney failure, unspecified Instructions Forms: Excuse From Work Precautions for COVID19 Patient Portal Social Distancing
--- NOTE | 2019-10-13 12:00 | RAD ---
HISTORYFever, shortness of breathSTUDYChest AP [id number] heart is within normal limits in size. The keith are normal. There is a right pleural effusion present. An underlying small right basilar infiltrate cannot be excluded. The remainder of the lung jones are clear. Bony thorax is unremarkable.IMPRESSIONRight pleural effusion partially obscuring the lung markings in the right lung baseElectronically signed by: DONAL ROBERTSON (Oct 13, 2019 11:58:09)
[2019-10-13 12:10] LABS: BASOPHILS % (AUTO) 0.1 % (0.2-1.0); EOSINOPHILS % (AUTO) 0.1 % (0.9-2.9); HEMATOCRIT 33.8 % (42.0-54.0); HEMOGLOBIN 11.1 g/dL (13.5-18.0); LYMPHOCYTES # (AUTO) 0.3 X10^3/uL (1.3-2.9); MEAN CORPUSCULAR HEMOGLOBIN 28.9 pg (27.0-34.0); MEAN CORPUSCULAR VOLUME 87.5 fL (80.0-100.0); MEAN PLATELET VOLUME 7.6 fL (7.4-11.0); MONOCYTES # (AUTO) 0.9 x10^3/uL (0.3-0.8); MONOCYTES % (AUTO) 7.6 % (0.0-13.0); NEUTROPHILS # (AUTO) 10.3 x10^3/uL (2.2-4.8); NEUTROPHILS % (AUTO) 89.2 % (42.0-75.0); PLATELET COUNT 196 X10^3/uL (150.0-450.0); RED BLOOD COUNT 3.86 X10^6/uL (4.7-6.0); WHITE BLOOD COUNT 11.5 X10^3/uL (3.6-10.0)
[2019-10-13 12:26] LABS: ALANINE AMINOTRANSFERASE 28 Units/L (12-78); ALBUMIN 3.1 g/dL (3.4-5.0); ALKALINE PHOSPHATASE 85 Units/L (46-116); ASPARTATE AMINO TRANSFERASE 30 Units/L (15-37); BLOOD UREA NITROGEN 72 mg/dL (7-18); CALCIUM 9.1 mg/dL (8.5-10.1); CARBON DIOXIDE 20.3 mmol/L (21-32); CHLORIDE 89 mmol/L (98-107); COR CA(FOR HYPOALB) 9.8 mg/dL (8.5-10.1); CREATININE 4.17 mg/dL (0.70-1.30); LACTATE DEHYDROGENASE 242 Units/L (85-227); TOTAL PROTEIN 8.1 g/dL (6.4-8.2); eGFR NON BLACK RACES 15 (>60)
[2019-10-13 12:29] LABS: SODIUM 125 mmol/L (136-145)
[2019-10-13 12:30] LABS: LACTIC ACID 1.6 mmol/L (0.4-2.0)
[2019-10-13 12:49] LABS: BILIRUBIN,URINE NEGATIVE (NEGATIVE); BLOOD/HEMOGLOBIN,URINE 4+ (NEGATIVE); GLUCOSE, URINE NEGATIVE (NEGATIVE); KETONES,URINE 1+ (NEGATIVE); LEUKOCYTE ESTERASE ,URINE 3+ (NEGATIVE); NITRITES,URINE POSITIVE (NEGATIVE); PROTEIN,URINE 3+ (NEGATIVE); UROBILINOGEN,URINE NORMAL (NORMAL)
[2019-10-13 12:59] LABS: APPEARANCE,URINE HAZY (CLEAR); COLOR,URINE DARK YELLOW (YELLOW)
[2019-10-13 13:00] LABS: BACTERIA,URINE 1+ /HPF (NEGATIVE); SQUAMOUS EPITHELIAL CELL,UR RARE /HPF (NEGATIVE)
[2019-10-13] MEDS ORDERED: NS 1000 ML 1,000 ML ONE (13:20)
[2019-10-13] MEDS ORDERED: ZOFRAN INJ 4 MG VIAL ONE (13:21)
[2019-10-13] MEDS ORDERED: MORPHINE SULFATE INJ 4 MG IVP ONE (13:22)
[2019-10-13] MEDS ORDERED: MORPHINE SULFATE INJ 2 MG INJ ONE ×2 (13:22→13:40)
[2019-10-13] MEDS ORDERED: ZOFRAN INJ 4 MG VIAL IVP ONE (13:22)
[2019-10-13] MEDS ORDERED: NS 1000 ML 1,000 ML IV ONE (13:22)
[2019-10-13] MEDS ORDERED: ZOSYN VIAL 2.25 GRAMS 2.25 G in NS 100 ML IV + SPIKE MINIBAG* 100 ML IV SCH (15:03)
[2019-10-13] MEDS: ROCEPHIN VIAL 1 GRAM 1 G in NS 100 ML IV + SPIKE MINIBAG* 100 ML IV SCH (16:31)
[2019-10-13] MEDS: PERCOCET TAB 5/325 MG PO PRN (17:57)
[2019-10-13] MEDS: NS 1000 ML 1,000 ML IV SCH ×2 (19:07→20:43)
[2019-10-13] MEDS: LIPITOR TAB 10 MG PO SCH (20:42)
[2019-10-14] MEDS: PERCOCET TAB 5/325 MG PO PRN ×3 (00:37→19:50)
[2019-10-14] MEDS: NS 1000 ML 1,000 ML IV SCH ×4 (02:29→19:00)
[2019-10-14 05:14] LABS: BASOPHILS % (AUTO) 0.3 % (0.2-1.0); EOSINOPHILS % (AUTO) 0.1 % (0.9-2.9); HEMATOCRIT 28.9 % (42.0-54.0); HEMOGLOBIN 9.8 g/dL (13.5-18.0); LYMPHOCYTES # (AUTO) 0.5 X10^3/uL (1.3-2.9); MEAN CORPUSCULAR HEMOGLOBIN 29.4 pg (27.0-34.0); MEAN CORPUSCULAR VOLUME 86.7 fL (80.0-100.0); MONOCYTES # (AUTO) 1.1 x10^3/uL (0.3-0.8); MONOCYTES % (AUTO) 12.7 % (0.0-13.0); NEUTROPHILS # (AUTO) 6.8 x10^3/uL (2.2-4.8); NEUTROPHILS % (AUTO) 80.9 % (42.0-75.0); PLATELET COUNT 172 X10^3/uL (150.0-450.0); RED BLOOD COUNT 3.33 X10^6/uL (4.7-6.0); RED CELL DISTRIBUTION WIDTH 13.9 % (11.6-16.5); WHITE BLOOD COUNT 8.5 X10^3/uL (3.6-10.0)
[2019-10-14 05:30] LABS: ALANINE AMINOTRANSFERASE 19 Units/L (12-78); ALBUMIN 2.3 g/dL (3.4-5.0); ALKALINE PHOSPHATASE 65 Units/L (46-116); ASPARTATE AMINO TRANSFERASE 19 Units/L (15-37); BLOOD UREA NITROGEN 66 mg/dL (7-18); CALCIUM 8.3 mg/dL (8.5-10.1); CARBON DIOXIDE 23.7 mmol/L (21-32); CHLORIDE 95 mmol/L (98-107); COR CA(FOR HYPOALB) 9.7 mg/dL (8.5-10.1); CREATININE 2.91 mg/dL (0.70-1.30); MAGNESIUM 1.9 mg/dL (1.7-2.9); SODIUM 127 mmol/L (136-145); TOTAL PROTEIN 6.3 g/dL (6.4-8.2); eGFR NON BLACK RACES 22 (>60)
[2019-10-14] MEDS ORDERED: LOVASTATIN PO SCH (09:00)
[2019-10-14] MEDS ORDERED: VASOTEC TAB 20 MG PO SCH (09:00)
[2019-10-14] MEDS ORDERED: ROCEPHIN VIAL 1 GRAM ONE (09:14)
[2019-10-14] MEDS ORDERED: NS 100 ML IV 100 ML IV ONE (09:14)
[2019-10-14] MEDS: NORVASC TAB 5 MG PO SCH (09:48)
[2019-10-14] MEDS: ASPIRIN EC 81 MG PO SCH (09:48)
[2019-10-14] MEDS: ROCEPHIN VIAL 1 GRAM 1 G in NS 100 ML IV + SPIKE MINIBAG* 100 ML IV SCH (09:52)
--- NOTE | 2019-10-14 11:04 | DR.H&P ---
H&P History & Physical for Day of: H&P Date: 10/14/19 Chief Complaint Chief Complaint: Fever Weakness Allergies Allergies Allergy/AdvReac Type Severity Reaction Status Date / Time No Known Drug Allergies Allergy Verified 05/24/17 07:06 History of Present Illness History of Present Illness: Pt is a 78 yo m pmhx HTN, HLD, admitted for pneumonia, urinary tract infection, dehydration, multiple electrolyte imbalances(hyponatremia, hypokalemia), and acute renal failure. He reports feeling cold and having dysuria, but no chest pain or shortness of breath. Labs/imaging: Wbc 11.5>8.5, Hgb 11.1>9.8, Plt 172, Na 125>127, K 3.1, Cr 4.17>2.91, Gluc 94. UA +nitrite,+leuks, UrineCx pending, BloodCx pending, COVID negative, CXR:R pleural effusion. He received 1L NS bolus in ED and is currently on NS@125ml/h. Replete electrolytes, trend renal function. Continue Abx R ocephin, add Azithromycin. Restart home medicatoins. Will continue to monitor and follow up labs/imaging in the morning. Past Medical History Past Medical History: Dyslipidemia and Hypertension Past Surgical History Surgical History: Other Family History Family Medical History: Cancer Social History Does patient currently use any type of tobacco product: No Have you used tobacco products in the last 12 months: No Type of Tobacco Use: None Does any household member use tobacco: No Alcohol Use: None Drug Use: None Medications Home Medications: No Known Drug Allergies Allergy (Verified 05/24/17 07:06) Labs Result Diagrams: 10/14/19 04:20 10/14/19 04:20 Labs: 10/13/19 12:30 Urine,Clean Catch Urine Culture - Preliminary 10/13/19 11:43 Blood Blood Culture - Preliminary Laboratory WBC 8.5 X10^3/uL (3.6-10.0) 10/14/19 04:20 RBC 3.33 X10^6/uL (4.7-6.0) L 10/14/19 04:20 Hgb 9.8 g/dL (13.5-18.0) L 10/14/19 04:20 Hct 28.9 % (42.0-54.0) L 10/14/19 04:20 MCV 86.7 fL (80.0-100.0) 10/14/19 04:20 MCH 29.4 pg (27.0-34.0) 10/14/19 04:20 MCHC 34.0 g/dL (33.0-35.0) 10/14/19 04:20 RDW 13.9 % (11.6-16.5) 10/14/19 04:20 Plt Count 172 X10^3/uL (150.0-450.0) 10/14/19 04:20 MPV 8.0 fL (7.4-11.0) 10/14/19 04:20 Neut % (Auto) 80.9 % (42.0-75.0) H 10/14/19 04:20 Lymph % (Auto) 6.0 % (21.0-51.0) L 10/14/19 04:20 [place] % (Auto) 12.7 % (0.0-13.0) 10/14/19 04:20 Eos % (Auto) 0.1 % (0.9-2.9) L 10/14/19 04:20 Baso % (Auto) 0.3 % (0.2-1.0) 10/14/19 04:20 Neut # (Auto) 6.8 x10^3/uL (2.2-4.8) H 10/14/19 04:20 Lymph # (Auto) 0.5 X10^3/uL (1.3-2.9) L 10/14/19 04:20 [place] # (Auto) 1.1 x10^3/uL (0.3-0.8) H 10/14/19 04:20 Eos # (Auto) 0.0 x10^3/uL (0.0-0.2) 10/14/19 04:20 Baso # (Auto) 0.0 X10^3/uL (0.0-0.1) 10/14/19 04:20 Absolute Nucleated RBC 0.0 /100WBC 10/14/19 04:20 Sodium 127 mmol/L (136-145) L 10/14/19 04:20 Corrected Sodium TNP 10/14/19 04:20 Potassium 3.1 mmol/L (3.5-5.1) L 10/14/19 04:20 Chloride 95 mmol/L (98-107) L 10/14/19 04:20 Carbon Dioxide 23.7 mmol/L (21-32) 10/14/19 04:20 BUN 66 mg/dL (7-18) H 10/14/19 04:20 Creatinine 2.91 mg/dL (0.70-1.30) H 10/14/19 04:20 Est GFR (MDRD) Af Amer 27 (>60) L 10/14/19 04:20 Est GFR (MDRD) Non-Af 22 (>60) L 10/14/19 04:20 Glucose 94 mg/dL (65-99) 10/14/19 04:20 Lactic Acid 1.6 mmol/L (0.4-2.0) 10/13/19 11:43 Calcium 8.3 mg/dL (8.5-10.1) L 10/14/19 04:20 Corrected Calcium 9.7 mg/dL (8.5-10.1) 10/14/19 04:20 Magnesium 1.9 mg/dL (1.7-2.9) 10/14/19 04:20 Ferritin 608 ng/mL (26-388) H 10/13/19 11:43 Total Bilirubin 0.50 mg/dL (0.2-1.0) 10/14/19 04:20 AST 19 Units/L (15-37) 10/14/19 04:20 ALT 19 Units/L (12-78) 10/14/19 04:20 Alkaline Phosphatase 65 Units/L (46-116) 10/14/19 04:20 Lactate Dehydrogenase 242 Units/L (85-227) H 10/13/19 11:43 C-Reactive Protein 268.00 mg/L (0-3.0) H 10/13/19 11:43 Total Protein 6.3 g/dL (6.4-8.2) L 10/14/19 04:20 Albumin 2.3 g/dL (3.4-5.0) L 10/14/19 04:20 Globulin 4.0 g/dL (2.5-4.5) 10/14/19 04:20 Albumin/Globulin Ratio 0.6 Ratio (1.1-2.1) L 10/14/19 04:20 Specimen Type Clean catch urine 10/13/19 12:30 Urine Color Dark yellow (YELLOW) 10/13/19 12:30 Urine Appearance Hazy (CLEAR) 10/13/19 12:30 Urine pH 5.0 (5.0 - 8.0) 10/13/19 12:30 Ur Specific [place] 1.015 (1.000-1.030) 10/13/19 12:30 Urine Protein 3+ (NEGATIVE) 10/13/19 12:30 Urine Glucose (UA) Negative (NEGATIVE) 10/13/19 12:30 Urine Ketones 1+ (NEGATIVE) 10/13/19 12:30 Urine Occult Blood 4+ (NEGATIVE) 10/13/19 12:30 Urine Nitrite Positive (NEGATIVE) 10/13/19 12:30 Urine Bilirubin Negative (NEGATIVE) 10/13/19 12:30 Urine Urobilinogen Normal (NORMAL) 10/13/19 12:30 Ur Leukocyte Esterase 3+ (NEGATIVE) 10/13/19 12:30 Urine RBC 5-10 /HPF (0-3) A 10/13/19 12:30 Urine WBC Tntc /HPF (0-5) A 10/13/19 12:30 Ur Squamous Epith Cells Rare /HPF (NEGATIVE) 10/13/19 12:30 Urine Bacteria 1+ /HPF (NEGATIVE) 10/13/19 12:30 Ur Culture Indicated? Yes/culture set up 10/13/19 12:30 SARS-CoV-2 (PCR) Negative (NEGATIVE) 10/13/19 13:51 Review of Systems Constitutional: Fever, Chills and Weakness Eyes: No Symptoms Reported ENT: No Symptoms Reported Respiratory: No Symptoms Reported Cardiovascular: No Symptoms Reported Gastrointestinal: No Symptoms Reported Genitourinary: Dysuria Musculoskeletal: Back Pain Skin: No Symptoms Reported Neurological: Weakness Physical Exam Vital Signs: Temperature 99.0 F Pulse Rate [Left Brachial] 80 Pulse Rate 83 Respiratory Rate 24 Blood Pressure [Right Arm] 128/62 Blood Pressure 145/72 O2 Sat by Pulse Oximetry 95 Oriented: Normal Eyes: Normal Ear: Normal Nose: Normal Respiratory: Diminished Throughout Cardiovascular: Normal : Dysuria Auscultation: Bowel Sounds: Normal Palpation: Normal Tenderness: Normal Skin: Normal Musculoskeletal: Normal Psychiatric: Normal Mood Description: Calm Speech Pattern: Clear Assessment/Plan (1) Pneumonia: Status: Acute Plan: COVID negative Abx:Rocephin+Azithromycin (2) Acute renal failure: Status: Acute Plan: IVF, trend renal function (3) Cystitis: Status: Acute Plan: Continue abx (4) Dehydration: Status: Acute (5) Electrolyte abnormality: Status: Acute Plan: Replete per protocol (6) Hyponatremia: Status: Acute Review H&P Reviewed: Yes Patient was examined?: Yes
[2019-10-14] MEDS ORDERED: ZITHROMAX TAB 250 MG PO ONE (11:24)
[2019-10-14] MEDS ORDERED: ZOFRAN INJ 4 MG VIAL ONE (13:15)
[2019-10-14] MEDS: ZOFRAN INJ 4 MG VIAL IVP PRN ×2 (13:26→18:20)
[2019-10-14] MEDS ORDERED: PEPCID 20 MG IV PREMIX* 20 MG/50 ML BAG IV ONE (13:28)
[2019-10-14] MEDS: PEPCID 20 MG IV PREMIX* 20 MG/50 ML BAG IV SCH ×2 (13:30→20:48)
[2019-10-14] MEDS: LIPITOR TAB 10 MG PO SCH (20:48)
[2019-10-14] MEDS: LOVENOX INJ 30 MG SYR SC SCH (21:24)
[2019-10-14] MEDS ORDERED: NITROSTAT SL PRN (23:08)
[2019-10-15] MEDS: PERCOCET TAB 5/325 MG PO PRN ×3 (01:57→20:03)
[2019-10-15] MEDS: NS 1000 ML 1,000 ML IV SCH ×3 (03:03→18:17)
[2019-10-15 07:04] LABS: ALANINE AMINOTRANSFERASE 19 Units/L (12-78); ALKALINE PHOSPHATASE 74 Units/L (46-116); ASPARTATE AMINO TRANSFERASE 20 Units/L (15-37); BASOPHILS # (AUTO) 0.1 X10^3/uL (0.0-0.1); BASOPHILS % (AUTO) 0.7 % (0.2-1.0); BLOOD UREA NITROGEN 41 mg/dL (7-18); CALCIUM 8.1 mg/dL (8.5-10.1); CARBON DIOXIDE 26.4 mmol/L (21-32); CHLORIDE 100 mmol/L (98-107); COR CA(FOR HYPOALB) 9.7 mg/dL (8.5-10.1); CREATININE 1.64 mg/dL (0.70-1.30); EOSINOPHILS % (AUTO) 0.7 % (0.9-2.9); HEMATOCRIT 26.4 % (42.0-54.0); HEMOGLOBIN 8.8 g/dL (13.5-18.0); LYMPHOCYTES # (AUTO) 0.7 X10^3/uL (1.3-2.9); LYMPHOCYTES % (AUTO) 9.5 % (21.0-51.0); MEAN CORPUSCULAR HEMOGLOBIN 29.4 pg (27.0-34.0); MEAN CORPUSCULAR HGB CONC 33.4 g/dL (33.0-35.0); MEAN CORPUSCULAR VOLUME 88.1 fL (80.0-100.0); MEAN PLATELET VOLUME 8.2 fL (7.4-11.0); MONOCYTES # (AUTO) 1.1 x10^3/uL (0.3-0.8); MONOCYTES % (AUTO) 14.7 % (0.0-13.0); NEUTROPHILS # (AUTO) 5.5 x10^3/uL (2.2-4.8); NEUTROPHILS % (AUTO) 74.4 % (42.0-75.0); PLATELET COUNT 166 X10^3/uL (150.0-450.0); RED BLOOD COUNT 2.99 X10^6/uL (4.7-6.0); SODIUM 133 mmol/L (136-145); TOTAL PROTEIN 5.8 g/dL (6.4-8.2); WHITE BLOOD COUNT 7.3 X10^3/uL (3.6-10.0); eGFR NON BLACK RACES 44 (>60)
[2019-10-15] MEDS: ASPIRIN EC 81 MG PO SCH (09:56)
[2019-10-15] MEDS: ROCEPHIN VIAL 1 GRAM 1 G in NS 100 ML IV + SPIKE MINIBAG* 100 ML IV SCH (09:56)
[2019-10-15] MEDS: PEPCID 20 MG IV PREMIX* 20 MG/50 ML BAG IV SCH (09:56)
[2019-10-15] MEDS: NORVASC TAB 5 MG PO SCH (09:56)
[2019-10-15] MEDS: ZITHROMAX TAB 250 MG PO SCH (09:56)
--- NOTE | 2019-10-15 11:27 | PCM.PROG ---
Progress Note Progress Note for Day of Date of Exam: 10/15/19 Subjective Subjective: Pt is a 78 yo m pmhx HTN, HLD, admitted for pneumonia, UTI, dehydration, multiple electrolyte imbalances(hyponatremia, hypokalemia), acute renal failure, and now bacteremia. This morning he was sitting up in bed, reports some improvement in symptoms. Labs/imaging: Wbc 7.3, Hgb 9.8>8.8, Plt 1 66, Na 127>133, K 3.3, Cr 2.91>1.64, Gluc 103. UrineCx positive E. coli, BloodCx prelim + gram negative rods, COVID negative, CXR: this morning pending. He is currently on NS@125ml/h, will decrease to 75 ml/h. His sodium and renal function improving, hold nephrotoxic agents. His Hgb has mildly decreased, will get anemia panel and FOBT. Continue Abx Rocephin + Azithromycin. Will get repeat blood cultures today. Continue to monitor and follow up labs/imaging in the morning. Past Medical Family Social History Past Med/Fam/Surg Hx: No changes since H&P Allergies: Allergies No Known Drug Allergies Allergy (Verified 05/24/17 07:06) Review of Systems ROS: No change since H&P Vital Signs and I&O's Vital Signs: Temperature 97.6 F Pulse Rate [Left Brachial] 60 Pulse Rate 83 Respiratory Rate 20 Blood Pressure [Right Arm] 151/80 Blood Pressure 145/72 O2 Sat by Pulse Oximetry 98 Intake and Output: Intake & Output 10/12/19 10/13/19 10/14/19 10/15/19 23:59 23:59 23:59 23:59 Intake Total 1370 / 1370 3160 / 3160 1240 / 1240 Output Total 500 / 500 2275 / 2275 700 / 700 Balance 870 / 870 885 / 885 540 / 540 Physical Exam Oriented: Normal Eyes: Normal Ear: Normal Nose: Normal Cardiovascular: Normal : Dysuria Auscultation: Bowel Sounds: Normal Tenderness: Normal Skin: Normal Musculoskeletal: Normal Psychiatric: Normal Mood Description: Calm Speech Pattern: Clear and Appropriate Laboratory and Diagnostics Result Diagrams: 10/15/19 06:03 10/15/19 06:03 Labs: 10/13/19 11:43 Blood Blood Culture - Preliminary 10/13/19 11:54 Blood Blood Culture - Preliminary 10/13/19 12:30 Urine,Clean Catch Urine Culture - Final Escherichia Coli Laboratory WBC 7.3 X10^3/uL (3.6-10.0) 10/15/19 06:03 RBC 2.99 X10^6/uL (4.7-6.0) L 10/15/19 06:03 Hgb 8.8 g/dL (13.5-18.0) L 10/15/19 06:03 Hct 26.4 % (42.0-54.0) L 10/15/19 06:03 MCV 88.1 fL (80.0-100.0) 10/15/19 06:03 MCH 29.4 pg (27.0-34.0) 10/15/19 06:03 MCHC 33.4 g/dL (33.0-35.0) 10/15/19 06:03 RDW 14.0 % (11.6-16.5) 10/15/19 06:03 Plt Count 166 X10^3/uL (150.0-450.0) 10/15/19 06:03 MPV 8.2 fL (7.4-11.0) 10/15/19 06:03 Neut % (Auto) 74.4 % (42.0-75.0) 10/15/19 06:03 Lymph % (Auto) 9.5 % (21.0-51.0) L 10/15/19 06:03 [place] % (Auto) 14.7 % (0.0-13.0) H 10/15/19 06:03 Eos % (Auto) 0.7 % (0.9-2.9) L 10/15/19 06:03 Baso % (Auto) 0.7 % (0.2-1.0) 10/15/19 06:03 Neut # (Auto) 5.5 x10^3/uL (2.2-4.8) H 10/15/19 06:03 Lymph # (Auto) 0.7 X10^3/uL (1.3-2.9) L 10/15/19 06:03 [place] # (Auto) 1.1 x10^3/uL (0.3-0.8) H 10/15/19 06:03 Eos # (Auto) 0.0 x10^3/uL (0.0-0.2) 10/15/19 06:03 Baso # (Auto) 0.1 X10^3/uL (0.0-0.1) 10/15/19 06:03 Absolute Nucleated RBC 0.0 /100WBC 10/15/19 06:03 Sodium 133 mmol/L (136-145) L 10/15/19 06:03 Corrected Sodium TNP 10/15/19 06:03 Potassium 3.3 mmol/L (3.5-5.1) L 10/15/19 06:03 Chloride 100 mmol/L (98-107) 10/15/19 06:03 Carbon Dioxide 26.4 mmol/L (21-32) 10/15/19 06:03 BUN 41 mg/dL (7-18) H 10/15/19 06:03 Creatinine 1.64 mg/dL (0.70-1.30) H 10/15/19 06:03 Est GFR (MDRD) Af Amer 53 (>60) L 10/15/19 06:03 Est GFR (MDRD) Non-Af 44 (>60) L 10/15/19 06:03 Glucose 103 mg/dL (65-99) H 10/15/19 06:03 Lactic Acid 1.6 mmol/L (0.4-2.0) 10/13/19 11:43 Calcium 8.1 mg/dL (8.5-10.1) L 10/15/19 06:03 Corrected Calcium 9.7 mg/dL (8.5-10.1) 10/15/19 06:03 Magnesium 1.9 mg/dL (1.7-2.9) 10/14/19 04:20 Ferritin 608 ng/mL (26-388) H 10/13/19 11:43 Total Bilirubin 0.50 mg/dL (0.2-1.0) 10/15/19 06:03 AST 20 Units/L (15-37) 10/15/19 06:03 ALT 19 Units/L (12-78) 10/15/19 06:03 Alkaline Phosphatase 74 Units/L (46-116) 10/15/19 06:03 Lactate Dehydrogenase 242 Units/L (85-227) H 10/13/19 11:43 C-Reactive Protein 268.00 mg/L (0-3.0) H 10/13/19 11:43 Total Protein 5.8 g/dL (6.4-8.2) L 10/15/19 06:03 Albumin 2.0 g/dL (3.4-5.0) L 10/15/19 06:03 Globulin 3.8 g/dL (2.5-4.5) 10/15/19 06:03 Albumin/Globulin Ratio 0.5 Ratio (1.1-2.1) L 10/15/19 06:03 Specimen Type Clean catch urine 10/13/19 12:30 Urine Color Dark yellow (YELLOW) 10/13/19 12:30 Urine Appearance Hazy (CLEAR) 10/13/19 12:30 Urine pH 5.0 (5.0 - 8.0) 10/13/19 12:30 Ur Specific [employer] [place] [employer] [place] 1.015 (1.000-1.030) 10/13/19 12:30 Urine Protein 3+ (NEGATIVE) 10/13/19 12:30 Urine Glucose (UA) Negative (NEGATIVE) 10/13/19 12:30 Urine Ketones 1+ (NEGATIVE) 10/13/19 12:30 Urine Occult Blood 4+ (NEGATIVE) 10/13/19 12:30 Urine Nitrite Positive (NEGATIVE) 10/13/19 12:30 Urine Bilirubin Negative (NEGATIVE) 10/13/19 12:30 Urine Urobilinogen Normal (NORMAL) 10/13/19 12:30 Ur Leukocyte Esterase 3+ (NEGATIVE) 10/13/19 12:30 Urine RBC 5-10 /HPF (0-3) A 10/13/19 12:30 Urine WBC Tntc /HPF (0-5) A 10/13/19 12:30 Ur Squamous Epith Cells Rare /HPF (NEGATIVE) 10/13/19 12:30 Urine Bacteria 1+ /HPF (NEGATIVE) 10/13/19 12:30 Ur Culture Indicated? Yes/culture set up 10/13/19 12:30 SARS-CoV-2 (PCR) Negative (NEGATIVE) 10/13/19 13:51 Plan (1) Bacteremia due to Gram-negative bacteria: Status: Acute Plan: Abx:Rocephin Waiting for species Repeat blood cultures (2) Pneumonia: Status: Acute Plan: COVID negative Abx:Rocephin+Azithromycin (3) Acute renal failure: Status: Acute Plan: IVF, trend renal function (4) Cystitis: Status: Acute Plan: Continue abx (5) Dehydration: Status: Acute (6) Electrolyte abnormality: Status: Acute Plan: Replete per protocol (7) Hyponatremia: Status: Acute
--- NOTE | 2019-10-15 14:34 | RAD ---
HISTORYPNEUMONIASTUDYCHEST, 1 VIEWCOMPARISONJuly 2019FINDINGSThe trachea is midline. The cardiac silhouette is unremarkable . The lungs demonstrate haziness throughout the right hemothorax suggesting worsening effusion with associated infiltrate. Left lung appears clear. The bony thorax is unremarkable.IMPRESSIONHazy opacifications throughout the right hemithorax suggesting worsening effusion associated infiltrate.Electronically signed by: WARNER ARTHUR (Oct 15, 2019 14:33:48)
[2019-10-15] MEDS: LOVENOX INJ 30 MG SYR SC SCH (20:01)
[2019-10-15] MEDS: LIPITOR TAB 10 MG PO SCH (20:03)
[2019-10-16 04:52] LABS: BASOPHILS # (AUTO) 0.1 X10^3/uL (0.0-0.1); BASOPHILS % (AUTO) 0.6 % (0.2-1.0); EOSINOPHILS # (AUTO) 0.2 x10^3/uL (0.0-0.2); EOSINOPHILS % (AUTO) 2.5 % (0.9-2.9); HEMATOCRIT 27.5 % (42.0-54.0); HEMOGLOBIN 9.2 g/dL (13.5-18.0); LYMPHOCYTES # (AUTO) 0.9 X10^3/uL (1.3-2.9); MEAN CORPUSCULAR HEMOGLOBIN 29.1 pg (27.0-34.0); MEAN CORPUSCULAR HGB CONC 33.3 g/dL (33.0-35.0); MEAN CORPUSCULAR VOLUME 87.5 fL (80.0-100.0); MEAN PLATELET VOLUME 7.7 fL (7.4-11.0); MONOCYTES # (AUTO) 1.1 x10^3/uL (0.3-0.8); NEUTROPHILS # (AUTO) 5.7 x10^3/uL (2.2-4.8); NEUTROPHILS % (AUTO) 71.9 % (42.0-75.0); PLATELET COUNT 188 X10^3/uL (150.0-450.0); RED BLOOD COUNT 3.15 X10^6/uL (4.7-6.0); RED CELL DISTRIBUTION WIDTH 13.8 % (11.6-16.5)
[2019-10-16 05:06] LABS: ALANINE AMINOTRANSFERASE 21 Units/L (12-78); ALKALINE PHOSPHATASE 88 Units/L (46-116); ASPARTATE AMINO TRANSFERASE 18 Units/L (15-37); BLOOD UREA NITROGEN 26 mg/dL (7-18); CALCIUM 8.2 mg/dL (8.5-10.1); CARBON DIOXIDE 25.8 mmol/L (21-32); CHLORIDE 103 mmol/L (98-107); COR CA(FOR HYPOALB) 9.8 mg/dL (8.5-10.1); CREATININE 1.18 mg/dL (0.70-1.30); SODIUM 136 mmol/L (136-145); TOTAL PROTEIN 5.9 g/dL (6.4-8.2); eGFR NON BLACK RACES > 60 (>60)
[2019-10-16] MEDS: NS 1000 ML 1,000 ML IV SCH ×4 (05:51→18:07)
[2019-10-16] MEDS ORDERED: K-RIDER 10 MEQ/NS 100 ML 10 MEQ/100 ML BAG IV PRN (07:06)
[2019-10-16] MEDS ORDERED: POTASSIUM CHL 40 MEQ/NS 0.45% 500 ML IV PRN (07:06)
[2019-10-16] MEDS ORDERED: POTASSIUM CHL 60 MEQ/NS 0.45% 500 ML IV PRN (07:06)
[2019-10-16] MEDS ORDERED: KLOR-CON PO PRN (07:06)
[2019-10-16] MEDS ORDERED: POTASSIUM CHLORIDE LIQ 20 MEQ UDC PO PRN (07:06)
[2019-10-16] MEDS ORDERED: K-DUR TAB 20 MEQ PO PRN (07:06)
[2019-10-16] MEDS ORDERED: MICRO K EXTEN CAP 10 MEQ PO PRN (07:06)
[2019-10-16] MEDS: PEPCID 20 MG IV PREMIX* 20 MG/50 ML BAG IV SCH (08:19)
[2019-10-16] MEDS: NORVASC TAB 5 MG PO SCH (08:22)
[2019-10-16] MEDS: ROCEPHIN VIAL 1 GRAM 1 G in NS 100 ML IV + SPIKE MINIBAG* 100 ML IV SCH (08:22)
[2019-10-16] MEDS: ASPIRIN EC 81 MG PO SCH (08:22)
[2019-10-16] MEDS: ZITHROMAX TAB 250 MG PO SCH (08:22)
[2019-10-16] MEDS: MAGNESIUM SULFATE 1 GRAM/100 mL PREMIX 1 GM/100 ML BAG IV PRN ×2 (09:59→11:22)
--- NOTE | 2019-10-16 10:12 | PCM.PROG ---
Progress Note Progress Note for Day of Date of Exam: 10/16/19 Subjective Subjective: Pt is a 78 yo m pmhx HTN, HLD, admitted for pneumonia, UTI(E. coli), dehydration, multiple electrolyte imbalances(hyponatremia, hypokalemia), acute renal failure, and E. coli bacteremia. This morning he was sitting on the side of the bed eating breakfast. He reports feeling better than yesterday. Labs/imaging: Wbc 8, Hgb 9.2, Plt 188, Na 136, K 3.5, Cr 1.64>1.18, Gluc 92. UrineCx positive E. coli, BloodCx positive E. coli, repeat BloodCx pending. His sodium and Cr are wnl, holding nephrotoxic agents. He is currently on NS@75ml/h>change to KVO. Anemia panel shows GARIMA, will start on iron supplements. Continue Abx Rocephin + Azithromycin. Continue to monitor and follow up labs/imaging in the morning. Past Medical Family Social History Past Med/Fam/Surg Hx: No changes since H&P Allergies: Allergies No Known Drug Allergies Allergy (Verified 05/24/17 07:06) Review of Systems ROS: No change since H&P Vital Signs and I&O's Vital Signs: Temperature 98.6 F Pulse Rate [Left Brachial] 73 Pulse Rate 83 Respiratory Rate 20 Blood Pressure [Right Arm] 129/72 Blood Pressure 145/72 O2 Sat by Pulse Oximetry 93 Intake and Output: Intake & Output 10/13/19 10/14/19 10/15/19 10/16/19 23:59 23:59 23:59 23:59 Intake Total 1370 / 1370 3160 / 3160 4025 / 4025 885 / 885 Output Total 500 / 500 2275 / 2275 2300 / 2300 800 / 800 Balance 870 / 870 885 / 885 1725 / 1725 85 / 85 Physical Exam Oriented: Normal Eyes: Normal Ear: Normal Nose: Normal Respiratory: Normal Cardiovascular: Normal : Dysuria Auscultation: Bowel Sounds: Normal Tenderness: Normal Skin: Normal Musculoskeletal: Normal Psychiatric: Normal Mood Description: Calm Speech Pattern: Clear and Appropriate Laboratory and Diagnostics Result Diagrams: 10/16/19 04:20 10/16/19 04:20 Labs: 10/13/19 11:54 Blood Blood Culture - Final Escherichia Coli 10/13/19 11:43 Blood Blood Culture - Final Escherichia Coli 10/13/19 12:30 Urine,Clean Catch Urine Culture - Final Escherichia Coli Laboratory WBC 8.0 X10^3/uL (3.6-10.0) 10/16/19 04:20 RBC 3.15 X10^6/uL (4.7-6.0) L 10/16/19 04:20 Hgb 9.2 g/dL (13.5-18.0) L 10/16/19 04:20 Hct 27.5 % (42.0-54.0) L 10/16/19 04:20 MCV 87.5 fL (80.0-100.0) 10/16/19 04:20 MCH 29.1 pg (27.0-34.0) 10/16/19 04:20 MCHC 33.3 g/dL (33.0-35.0) 10/16/19 04:20 RDW 13.8 % (11.6-16.5) 10/16/19 04:20 Plt Count 188 X10^3/uL (150.0-450.0) 10/16/19 04:20 MPV 7.7 fL (7.4-11.0) 10/16/19 04:20 Neut % (Auto) 71.9 % (42.0-75.0) 10/16/19 04:20 Lymph % (Auto) 11.0 % (21.0-51.0) L 10/16/19 04:20 [place] % (Auto) 14.0 % (0.0-13.0) H 10/16/19 04:20 Eos % (Auto) 2.5 % (0.9-2.9) 10/16/19 04:20 Baso % (Auto) 0.6 % (0.2-1.0) 10/16/19 04:20 Neut # (Auto) 5.7 x10^3/uL (2.2-4.8) H 10/16/19 04:20 Lymph # (Auto) 0.9 X10^3/uL (1.3-2.9) L 10/16/19 04:20 [place] # (Auto) 1.1 x10^3/uL (0.3-0.8) H 10/16/19 04:20 Eos # (Auto) 0.2 x10^3/uL (0.0-0.2) 10/16/19 04:20 Baso # (Auto) 0.1 X10^3/uL (0.0-0.1) 10/16/19 04:20 Absolute Nucleated RBC 0.0 /100WBC 10/16/19 04:20 Sodium 136 mmol/L (136-145) 10/16/19 04:20 Corrected Sodium TNP 10/16/19 04:20 Potassium 3.5 mmol/L (3.5-5.1) 10/16/19 04:20 Chloride 103 mmol/L (98-107) 10/16/19 04:20 Carbon Dioxide 25.8 mmol/L (21-32) 10/16/19 04:20 BUN 26 mg/dL (7-18) H 10/16/19 04:20 Creatinine 1.18 mg/dL (0.70-1.30) 10/16/19 04:20 Est GFR (MDRD) Af Amer > 60 (>60) 10/16/19 04:20 Est GFR (MDRD) Non-Af > 60 (>60) 10/16/19 04:20 Glucose 92 mg/dL (65-99) 10/16/19 04:20 Lactic Acid 1.6 mmol/L (0.4-2.0) 10/13/19 11:43 Calcium 8.2 mg/dL (8.5-10.1) L 10/16/19 04:20 Corrected Calcium 9.8 mg/dL (8.5-10.1) 10/16/19 04:20 Magnesium 1.6 mg/dL (1.7-2.9) L 10/16/19 04:20 Iron 14 ug/dL (50-175) L 10/15/19 09:54 Transferrin 171 mg/dL (202-364) L 10/15/19 09:54 Ferritin 421 ng/mL (26-388) H 10/15/19 09:54 Total Bilirubin 0.50 mg/dL (0.2-1.0) 10/16/19 04:20 AST 18 Units/L (15-37) 10/16/19 04:20 ALT 21 Units/L (12-78) 10/16/19 04:20 Alkaline Phosphatase 88 Units/L (46-116) 10/16/19 04:20 Lactate Dehydrogenase 242 Units/L (85-227) H 10/13/19 11:43 C-Reactive Protein 268.00 mg/L (0-3.0) H 10/13/19 11:43 Total Protein 5.9 g/dL (6.4-8.2) L 10/16/19 04:20 Albumin 2.0 g/dL (3.4-5.0) L 10/16/19 04:20 Globulin 3.9 g/dL (2.5-4.5) 10/16/19 04:20 Albumin/Globulin Ratio 0.5 Ratio (1.1-2.1) L 10/16/19 04:20 Vitamin B12 822 pg/mL (193-986) 10/15/19 09:54 Folate 12.4 ng/mL (>8.6) 10/15/19 09:54 Specimen Type Clean catch urine 10/13/19 12:30 Urine Color Dark yellow (YELLOW) 10/13/19 12:30 Urine Appearance Hazy (CLEAR) 10/13/19 12:30 Urine pH 5.0 (5.0 - 8.0) 10/13/19 12:30 Ur Specific [place] 1.015 (1.000-1.030) 10/13/19 12:30 Urine Protein 3+ (NEGATIVE) 10/13/19 12:30 Urine Glucose (UA) Negative (NEGATIVE) 10/13/19 12:30 Urine Ketones 1+ (NEGATIVE) 10/13/19 12:30 Urine Occult Blood 4+ (NEGATIVE) 10/13/19 12:30 Urine Nitrite Positive (NEGATIVE) 10/13/19 12:30 Urine Bilirubin Negative (NEGATIVE) 10/13/19 12:30 Urine Urobilinogen Normal (NORMAL) 10/13/19 12:30 Ur Leukocyte Esterase 3+ (NEGATIVE) 10/13/19 12:30 Urine RBC 5-10 /HPF (0-3) A 10/13/19 12:30 Urine WBC Tntc /HPF (0-5) A 10/13/19 12:30 Ur Squamous Epith Cells Rare /HPF (NEGATIVE) 10/13/19 12:30 Urine Bacteria 1+ /HPF (NEGATIVE) 10/13/19 12:30 Ur Culture Indicated? Yes/culture set up 10/13/19 12:30 SARS-CoV-2 (PCR) Negative (NEGATIVE) 10/13/19 13:51 Plan (1) Bacteremia due to Gram-negative bacteria: Status: Acute Plan: Abx:Rocephin BloodCx:E. coli Repeat blood cultures pending (2) Pneumonia: Status: Acute Plan: COVID negative Abx:Rocephin+Azithromycin (3) Acute renal failure: Status: Acute Plan: IVF, renal function wnl (4) Cystitis: Status: Acute Plan: Continue abx (5) Dehydration: Status: Acute (6) Electrolyte abnormality: Status: Acute Plan: Replete per protocol (7) Hyponatremia: Status: Acute (8) Iron deficiency anemia: Status: Acute Plan: iron supplements
[2019-10-16] MEDS: PERCOCET TAB 5/325 MG PO PRN ×2 (16:10→21:19)
[2019-10-16] MEDS ORDERED: FERROUS GLUCONATE PO SCH (18:00)
[2019-10-16] MEDS: LIPITOR TAB 10 MG PO SCH (21:21)
[2019-10-16] MEDS: LOVENOX INJ 30 MG SYR SC SCH (21:26)
[2019-10-17 05:02] LABS: BASOPHILS # (AUTO) 0.1 X10^3/uL (0.0-0.1); BASOPHILS % (AUTO) 0.9 % (0.2-1.0); EOSINOPHILS # (AUTO) 0.4 x10^3/uL (0.0-0.2); HEMATOCRIT 27.6 % (42.0-54.0); LYMPHOCYTES % (AUTO) 13.8 % (21.0-51.0); MEAN CORPUSCULAR HEMOGLOBIN 28.3 pg (27.0-34.0); MEAN CORPUSCULAR HGB CONC 32.4 g/dL (33.0-35.0); MEAN CORPUSCULAR VOLUME 87.5 fL (80.0-100.0); MEAN PLATELET VOLUME 7.2 fL (7.4-11.0); MONOCYTES # (AUTO) 0.9 x10^3/uL (0.3-0.8); MONOCYTES % (AUTO) 13.2 % (0.0-13.0); NEUTROPHILS # (AUTO) 4.7 x10^3/uL (2.2-4.8); NEUTROPHILS % (AUTO) 67.1 % (42.0-75.0); PLATELET COUNT 237 X10^3/uL (150.0-450.0); RED BLOOD COUNT 3.16 X10^6/uL (4.7-6.0); RED CELL DISTRIBUTION WIDTH 13.6 % (11.6-16.5)
[2019-10-17 05:07] LABS: BLOOD UREA NITROGEN 15 mg/dL (7-18); CALCIUM 8.1 mg/dL (8.5-10.1); CARBON DIOXIDE 27.4 mmol/L (21-32); CHLORIDE 104 mmol/L (98-107); CREATININE 0.99 mg/dL (0.70-1.30); SODIUM 136 mmol/L (136-145); eGFR NON BLACK RACES > 60 (>60)
[2019-10-17] MEDS: NS 1000 ML 1,000 ML IV SCH ×2 (06:25→11:21)
[2019-10-17] MEDS: ASPIRIN EC 81 MG PO SCH (09:39)
[2019-10-17] MEDS: NORVASC TAB 5 MG PO SCH (09:39)
[2019-10-17] MEDS: ZITHROMAX TAB 250 MG PO SCH (09:39)
[2019-10-17] MEDS: PEPCID 20 MG IV PREMIX* 20 MG/50 ML BAG IV SCH (09:41)
[2019-10-17] MEDS: ROCEPHIN VIAL 1 GRAM 1 G in NS 100 ML IV + SPIKE MINIBAG* 100 ML IV SCH (09:43)
--- NOTE | 2019-10-17 10:20 | W.DIS.FURT ---
Summary of Discharge Discharge Summary of Date Date of Exam: 10/17/19 Admission Date Date of Admission: 10/13/19 Admission Diagnosis Patient Problems (Updated 10/17/19 @ 08:41 by JANELL DAVEY) Acute hyponatremia (Acute) E87.1 Acute renal failure (Acute) N17.9 Acute dehydration (Acute) E86.0 Acute UTI (Acute) N39.0 Iron deficiency anemia (Acute) D50.9 Bacteremia due to Gram-negative bacteria (Acute) R78.81 Pneumonia (Acute) J18.9 Dehydration (Acute) E86.0 Acute renal failure (Acute) N17.9 Electrolyte abnormality (Acute) E87.8 Hospital Course: Pt is a 78 yo m pmhx HTN, HLD, admitted for pneumonia, UTI(E. coli), dehydration, multiple electrolyte imbalances(hyponatremia, hypokalemia), acute renal failure, and E. coli bacteremia. His hospital course included IVF, holding nephrotoxic agents, Abx:Rocephin+Azithromycin, Renal function improved from Cr 4.17>0.99, and electrolytes normalized. UrineCx positive E. coli, BloodCx positive E. coli, BloodCx were repeated and NGTD. Pt was found to also have GARIMA, and was started on iron supplements. Instructed to complete 10 day course of Levaquin and to discontinue HCTZ due to electrolyte abnormalities. Resumed enalapril. Pt discharged in stable condition, instructed to follow up w/ pcp in 1 week. Vital Signs: Vital Signs (72 hours) 10/14/19 10:48 10/14/19 12:00 10/14/19 16:00 Temperature 98.3 F 98.7 F Pulse Rate Pulse Rate [Left Brachial] 88 88 Respiratory Rate 24 20 20 Blood Pressure [Right Arm] 128/58 188/87 O2 Sat by Pulse Oximetry 90 L 92 L 10/14/19 19:50 10/14/19 20:00 10/14/19 20:50 Temperature 99.7 F H Pulse Rate Pulse Rate [Left Brachial] 86 Respiratory Rate 20 22 22 Blood Pressure [Right Arm] O2 Sat by Pulse Oximetry 90 L 10/15/19 00:00 10/15/19 01:57 10/15/19 02:57 Temperature 98.4 F Pulse Rate Pulse Rate [Left Brachial] 63 Respiratory Rate 18 20 22 Blood Pressure [Right Arm] 138/65 O2 Sat by Pulse Oximetry 96 10/15/19 04:00 10/15/19 08:00 10/15/19 12:00 Temperature 97.8 F 97.6 F 98.0 F Pulse Rate Pulse Rate [Left Brachial] 80 60 77 Respiratory Rate 22 20 20 Blood Pressure [Right Arm] 152/69 151/80 174/59 O2 Sat by Pulse Oximetry 96 98 93 L 10/15/19 14:20 10/15/19 15:20 10/15/19 16:00 Temperature 98.5 F Pulse Rate Pulse Rate [Left Brachial] 54 L Respiratory Rate 20 22 20 Blood Pressure [Right Arm] 147/67 O2 Sat by Pulse Oximetry 94 L 10/15/19 19:22 10/15/19 20:03 10/15/19 21:03 Temperature 98.1 F Pulse Rate Pulse Rate [Left Brachial] 71 Respiratory Rate 24 24 22 Blood Pressure [Right Arm] 159/72 O2 Sat by Pulse Oximetry 95 10/15/19 23:02 10/16/19 03:40 10/16/19 07:58 Temperature 98.4 F 98.9 F 98.6 F Pulse Rate Pulse Rate [Left Brachial] 65 61 73 Respiratory Rate 20 18 20 Blood Pressure [Right Arm] 150/72 188/80 129/72 O2 Sat by Pulse Oximetry 95 97 93 L 10/16/19 11:38 10/16/19 16:00 10/16/19 16:10 Temperature 99.0 F 99.1 F Pulse Rate Pulse Rate [Left Brachial] 65 72 Respiratory Rate 20 20 24 Blood Pressure [Right Arm] 167/72 O2 Sat by Pulse Oximetry 99 98 10/16/19 17:10 10/16/19 20:00 10/16/19 20:15 Temperature 99.2 F Pulse Rate 82 Pulse Rate [Left Brachial] 68 Respiratory Rate 22 20 Blood Pressure [Right Arm] 180/79 O2 Sat by Pulse Oximetry 93 L 98 10/16/19 21:19 10/16/19 22:19 10/17/19 00:00 Temperature 97.9 F Pulse Rate Pulse Rate [Left Brachial] 72 Respiratory Rate 18 18 22 Blood Pressure [Right Arm] 175/77 O2 Sat by Pulse Oximetry 97 10/17/19 04:00 10/17/19 08:00 Temperature 98 F 98.0 F Pulse Rate Pulse Rate [Left Brachial] 72 64 Respiratory Rate 20 20 Blood Pressure [Right Arm] 178/76 179/76 O2 Sat by Pulse Oximetry 98 96 Labs: Laboratory Last Values WBC 7.0 X10^3/uL (3.6-10.0) 10/17/19 04:45 RBC 3.16 X10^6/uL (4.7-6.0) L 10/17/19 04:45 Hgb 9.0 g/dL (13.5-18.0) L 10/17/19 04:45 Hct 27.6 % (42.0-54.0) L 10/17/19 04:45 MCV 87.5 fL (80.0-100.0) 10/17/19 04:45 MCH 28.3 pg (27.0-34.0) 10/17/19 04:45 MCHC 32.4 g/dL (33.0-35.0) L 10/17/19 04:45 RDW 13.6 % (11.6-16.5) 10/17/19 04:45 Plt Count 237 X10^3/uL (150.0-450.0) 10/17/19 04:45 MPV 7.2 fL (7.4-11.0) L 10/17/19 04:45 Neut % (Auto) 67.1 % (42.0-75.0) 10/17/19 04:45 Lymph % (Auto) 13.8 % (21.0-51.0) L 10/17/19 04:45 [place] % (Auto) 13.2 % (0.0-13.0) H 10/17/19 04:45 Eos % (Auto) 5.0 % (0.9-2.9) H 10/17/19 04:45 Baso % (Auto) 0.9 % (0.2-1.0) 10/17/19 04:45 Neut # (Auto) 4.7 x10^3/uL (2.2-4.8) 10/17/19 04:45 Lymph # (Auto) 1.0 X10^3/uL (1.3-2.9) L 10/17/19 04:45 [place] # (Auto) 0.9 x10^3/uL (0.3-0.8) H 10/17/19 04:45 Eos # (Auto) 0.4 x10^3/uL (0.0-0.2) H 10/17/19 04:45 Baso # (Auto) 0.1 X10^3/uL (0.0-0.1) 10/17/19 04:45 Absolute Nucleated RBC 0.0 /100WBC 10/17/19 04:45 Sodium 136 mmol/L (136-145) 10/17/19 04:45 Corrected Sodium TNP 10/17/19 04:45 Potassium 3.5 mmol/L (3.5-5.1) 10/17/19 04:45 Chloride 104 mmol/L (98-107) 10/17/19 04:45 Carbon Dioxide 27.4 mmol/L (21-32) 10/17/19 04:45 BUN 15 mg/dL (7-18) 10/17/19 04:45 Creatinine 0.99 mg/dL (0.70-1.30) 10/17/19 04:45 Est GFR (MDRD) Af Amer > 60 (>60) 10/17/19 04:45 Est GFR (MDRD) Non-Af > 60 (>60) 10/17/19 04:45 Glucose 97 mg/dL (65-99) 10/17/19 04:45 Lactic Acid 1.6 mmol/L (0.4-2.0) 10/13/19 11:43 Calcium 8.1 mg/dL (8.5-10.1) L 10/17/19 04:45 Corrected Calcium 9.8 mg/dL (8.5-10.1) 10/16/19 04:20 Magnesium 1.6 mg/dL (1.7-2.9) L 10/16/19 04:20 Iron 14 ug/dL (50-175) L 10/15/19 09:54 Transferrin 171 mg/dL (202-364) L 10/15/19 09:54 Ferritin 421 ng/mL (26-388) H 10/15/19 09:54 Total Bilirubin 0.50 mg/dL (0.2-1.0) 10/16/19 04:20 AST 18 Units/L (15-37) 10/16/19 04:20 ALT 21 Units/L (12-78) 10/16/19 04:20 Alkaline Phosphatase 88 Units/L (46-116) 10/16/19 04:20 Lactate Dehydrogenase 242 Units/L (85-227) H 10/13/19 11:43 C-Reactive Protein 268.00 mg/L (0-3.0) H 10/13/19 11:43 Total Protein 5.9 g/dL (6.4-8.2) L 10/16/19 04:20 Albumin 2.0 g/dL (3.4-5.0) L 10/16/19 04:20 Globulin 3.9 g/dL (2.5-4.5) 10/16/19 04:20 Albumin/Globulin Ratio 0.5 Ratio (1.1-2.1) L 10/16/19 04:20 Vitamin B12 822 pg/mL (193-986) 10/15/19 09:54 Folate 12.4 ng/mL (>8.6) 10/15/19 09:54 Specimen Type Clean catch urine 10/13/19 12:30 Urine Color Dark yellow (YELLOW) 10/13/19 12:30 Urine Appearance Hazy (CLEAR) 10/13/19 12:30 Urine pH 5.0 (5.0 - 8.0) 10/13/19 12:30 Ur Specific [place] 1.015 (1.000-1.030) 10/13/19 12:30 Urine Protein 3+ (NEGATIVE) 10/13/19 12:30 Urine Glucose (UA) Negative (NEGATIVE) 10/13/19 12:30 Urine Ketones 1+ (NEGATIVE) 10/13/19 12:30 Urine Occult Blood 4+ (NEGATIVE) 10/13/19 12:30 Urine Nitrite Positive (NEGATIVE) 10/13/19 12:30 Urine Bilirubin Negative (NEGATIVE) 10/13/19 12:30 Urine Urobilinogen Normal (NORMAL) 10/13/19 12:30 Ur Leukocyte Esterase 3+ (NEGATIVE) 10/13/19 12:30 Urine RBC 5-10 /HPF (0-3) A 10/13/19 12:30 Urine WBC Tntc /HPF (0-5) A 10/13/19 12:30 Ur Squamous Epith Cells Rare /HPF (NEGATIVE) 10/13/19 12:30 Urine Bacteria 1+ /HPF (NEGATIVE) 10/13/19 12:30 Ur Culture Indicated? Yes/culture set up 10/13/19 12:30 SARS-CoV-2 (PCR) Negative (NEGATIVE) 10/13/19 13:51 Reason For Visit: HYPONATREMIA,ACUTE RENAL FAILURE,DEHYDRATION,UTI Discharge Date Discharge Date: 10/17/19 Discharge Diagnosis All Active Problems (Updated 10/17/19 @ 08:41 by JANELL DAVEY) Acute hyponatremia (Acute) Acute renal failure (Acute) Acute dehydration (Acute) Acute UTI (Acute) Iron deficiency anemia (Acute) Bacteremia due to Gram-negative bacteria (Acute) Pneumonia (Acute) Dehydration (Acute) Acute renal failure (Acute) Electrolyte abnormality (Acute) Hyponatremia (Acute) Cystitis (Acute) Multiple rib fractures (Acute) Hemothorax on right (Acute) Pneumothorax on right (Acute) Contusion of lung (Acute) Plan of Treatment: Continue with present treatment and follow up plan. Pt is to keep follow up appointment as instructed and take medications as ordered. Discharge Medications Discharge Medications: No Known Drug Allergies Allergy (Verified 05/24/17 07:06) New Prescriptions ferrous gluconate 324 mg PO DAILYPC 30 Days #30 tab 10/17/19 [Rx] levofloxacin [Levaquin] 750 mg PO Q24H 10 Days #10 tab 10/17/19 [Rx] Follow up and Referral Follow Up: 1 Week Discharge Disposition Discharge Disposition: Home Discharge Condition: Stable
[2019-10-17 13:37] VITALS: BP 165/77
== END 2019-10-17 13:40 | disposition home or self-care (01) | DRG 871 ==
LOC: ER 11:09 → MED/SURG 15:13
PROVIDERS: ADMIT Family Medicine; ATTEND Family Medicine
DX: E87.6 Hypokalemia; D50.9 Iron deficiency anemia, unspecified; I10 Essential (primary) hypertension; E86.0 Dehydration; E87.1 Hypo-osmolality and hyponatremia; Z91.81 History of falling; J18.9 Pneumonia, unspecified organism; N30.00 Acute cystitis without hematuria; A41.51 Sepsis due to Escherichia coli [E. coli]; J94.2 Hemothorax; Z87.828 Personal history of other (healed) physical injury and trauma; Z11.59 Encounter for screening for other viral diseases; R26.81 Unsteadiness on feet; N17.9 Acute kidney failure, unspecified
CPT/HCPCS: 36415; 71010; 71045; 80048; 80053; 81001; 82607; 82728; 82746; 83540; 83605; 83615; 83735; 84466; 85025; 86140; 87040; 87077; 87086; 87088; 87186; 87635; 93005; 94760; 96365; 96367; 96374; 96375; 97162; 97166; 97535; 99283; 99284; A4216; A4222; J0696; J1650; J2270; J2405; J3475; J7030; J7050; S0028